=== PATIENT | male | born 1940 | race Caucasian/White ===

== ENCOUNTER 2019-01-14 19:19 | Emergency (ER) | payer OTHER ==
[2019-01-14 20:16] LABS: Urine Blood TRACE (NEG); Urine Glucose NEGATIVE (NEG); Urine Protein 1+ (NEG); Urine Specific Gravity 1.015 (1.005-1.030); Urine pH 6.5 (5.0-7.0)
[2019-01-14 20:16] LABS: Urine Bacteria 20-50 /HPF (NONE SEEN); Urine Culture Reflex Order REFLEXED; Urine Mucus 2+ /HPF (NONE SEEN)
--- NOTE | 2019-01-14 20:30 | EDPHYS ---
Physician Documentation [facility] Name: Samuel Parker Age: 78 yrs Sex: Male : 1940 Arrival Date: 01/14/2019 Time: 19:20 Bed 14 Private MD: Jose Vázquez C ED Physician Elvis Stewart HPI: 01/14 20:27 This 78 yrs old Male presents to ER via Ambulatory with complaints of Ear gs Pain, Sinus Pain, Urinary Problem. 20:27 The patient presents with pain, that is acute. The complaints affect the left ear. gs Onset: The symptoms/episode began/occurred acutely, yesterday. Modifying factors: The symptoms are alleviated by nothing, the symptoms are aggravated by nothing. Associated signs and symptoms: Pertinent positives: sinus trouble, Pertinent negatives: fever. Severity of symptoms: At their worst the symptoms were moderate in the emergency department the symptoms are unchanged. The patient has experienced similar episodes in the past, a few times. + dysuria. Historical: - Allergies: 19:31 Symbicort; ak1 - Home Meds: 19:31 aspirin 81 mg Oral TbEC 1 tab once daily [Active]; lisinopril Oral [Active]; probiotics ak1 [Active]; viteyes caps [Active]; atorvastatin Oral [Active]; Glimepiride Oral [Active]; - PMHx: 19:31 CAD; Diabetes - NIDDM; High Cholesterol; ak1 - PSHx: 19:31 Appendectomy; Tonsillectomy; Hernia repair; CABG; ak1 - Immunization history:: Adult Immunizations unknown. - Social history:: Smoking status: Smoking status: Patient uses tobacco products, denies chronic smoking, but will smoke occasionally. - Ebola Screening: : No symptoms or risks identified at this time. ROS: 20:27 All other systems are negative. gs Exam: 20:27 Head/Face: Normocephalic, atraumatic. Eyes: Pupils equal round and reactive to light, gs extra-ocular motions intact. Lids and lashes normal. Conjunctiva and sclera are non-icteric and not injected. Cornea within normal limits. Periorbital areas with no swelling, redness, or edema. Neck: Trachea midline, no thyromegaly or masses palpated, and no cervical lymphadenopathy. Supple, full range of motion without nuchal rigidity, or vertebral point tenderness. No Meningismus. Chest/axilla: Normal chest wall appearance and motion. Nontender with no deformity. No lesions are appreciated. Cardiovascular: Regular rate and rhythm with a normal S1 and S2. No gallops, murmurs, or rubs. Normal PMI, no JVD. No pulse deficits. Respiratory: Lungs have equal breath sounds bilaterally, clear to auscultation and percussion. No rales, rhonchi or wheezes noted. No increased work of breathing, no retractions or nasal flaring. Abdomen/GI: Soft, non-tender, with normal bowel sounds. No distension or tympany. No guarding or rebound. No evidence of tenderness throughout. Back: No spinal tenderness. No costovertebral tenderness. Full range of motion. Skin: Warm, dry with normal turgor. Normal color with no rashes, no lesions, and no evidence of cellulitis. MS/ Extremity: Pulses equal, no cyanosis. Neurovascular intact. Full, normal range of motion. Neuro: Awake and alert, GCS 15, oriented to person, place, time, and situation. Cranial nerves II-XII grossly intact. Motor strength 5/5 in all extremities. Sensory grossly intact. Cerebellar exam normal. Normal gait. 20:27 Constitutional: The patient appears alert, awake. 20:27 ENT: TM's: decreased mobility, dullness, erythema, loss of bony landmarks, on the left. Vital Signs: 19:31 BP 142 / 76; Pulse 79; Resp 16; Temp 97.6; Pulse Ox 97% on R/A; Weight 74.84 kg (R); ak1 Height 5 ft. 11 in. (180.34 cm) (R); Pain 3/10; 20:46 BP 106 / 75; Pulse 82; Resp 16; Pulse Ox 100% on R/A; jb4 19:31 Body Mass Index 23.01 (74.84 kg, 180.34 cm) ak1 MDM: 20:19 Patient medically screened. 20:27 Data reviewed: vital signs, nurses notes. Counseling: I had a detailed discussion with the patient and/or guardian regarding: the historical points, exam findings, and any diagnostic results supporting the discharge/admit diagnosis, the need for outpatient follow up. 01/14 19:43 Order name: Urine Microscopic Only 01/14 19:53 Order name: Urine Dipstick--Ancillary (enter results) mw2 01/14 19:43 Order name: Urine Dipstick-Ancillary (obtain specimen); Complete Time: 19:52 01/14 20:17 Order name: Urine Culture EDMS Administered Medications: No medications were administered Disposition: 01/14/19 20:29 Discharged to Home. Impression: Otitis media, unspecified, left ear, Cystitis. - Condition is Stable. - Discharge Instructions: Urinary Tract Infection, Adult, Otitis Media, Adult, [id number]. - Prescriptions for Ceftin 500 mg Oral Tablet - take 1 tablet by ORAL route every 12 hours for 10 days; 20 tablet. - Medication Reconciliation Form, Thank You Letter, Antibiotic Education, Prescription Opioid Use form. - Follow up: Private Physician; When: 2 - 3 days; Reason: Re-evaluation by your physician. Signatures: Dispatcher [employer] EDMS Staci Balderas RN RN ak1 Santi Mathis RN RN jb4 Elvis Stewart MD MD Corrections: (The following items were deleted from the chart) 20:49 20:29 01/14/2019 20:29 Discharged to Home. Impression: Otitis media, unspecified, left jb4 ear; Cystitis. Condition is Stable. Forms are Medication Reconciliation Form, Thank You Letter, Antibiotic Education, Prescription Opioid Use. Follow up: Private Physician; When: 2 - 3 days; Reason: Re-evaluation by your physician. gs
--- NOTE | 2019-01-14 20:30 | ER ---
Nurse's Notes [facility] Name: Samuel Parker Age: 78 yrs Sex: Male : 1940 Arrival Date: 01/14/2019 Time: 19:20 Bed 14 Private MD: Jose Vázquez C Diagnosis: Otitis media, unspecified, left ear;Cystitis Presentation: 01/14 19:29 Presenting complaint: Patient states: left ear pain X2 day. urine frequency and burning ak1 X3 days. Transition of care: patient was not received from another setting of care. Onset of symptoms is unknown. Risk Assessment: Do you want to hurt yourself or someone else? Patient reports no desire to harm self or others. Initial Sepsis Screen: Does the patient meet any 2 criteria? No. Patient's initial sepsis screen is negative. Does the patient have a suspected source of infection? No. Patient's initial sepsis screen is negative. Care prior to arrival: None. 19:29 Method Of Arrival: Ambulatory ak1 19:29 Acuity: ZHAO 4 ak1 Triage Assessment: 19:31 General: Appears in no apparent distress. Behavior is cooperative, anxious. Pain: ak1 Complains of pain in left ear. Historical: - Allergies: 19:31 Symbicort; ak1 - Home Meds: 19:31 aspirin 81 mg Oral TbEC 1 tab once daily [Active]; lisinopril Oral [Active]; probiotics ak1 [Active]; viteyes caps [Active]; atorvastatin Oral [Active]; Glimepiride Oral [Active]; - PMHx: 19:31 CAD; Diabetes - NIDDM; High Cholesterol; ak1 - PSHx: 19:31 Appendectomy; Tonsillectomy; Hernia repair; CABG; ak1 - Immunization history:: Adult Immunizations unknown. - Social history:: Smoking status: Smoking status: Patient uses tobacco products, denies chronic smoking, but will smoke occasionally. - Ebola Screening: : No symptoms or risks identified at this time. Screenin:31 Abuse screen: Denies threats or abuse. Denies injuries from another. Nutritional ak1 screening: No deficits noted. Tuberculosis screening: No symptoms or risk factors identified. Fall Risk None identified. Assessment: 19:45 General: Appears in no apparent distress. comfortable, Behavior is calm, cooperative, jb4 appropriate for age. Pain: Complains of pain in left ear Pain does not radiate. Pain currently is 4 out of 10 on a pain scale. Quality of pain is described as uncomfortable. Neuro: Level of Consciousness is awake, alert, obeys commands, Oriented to person, place, time, situation. Cardiovascular: Patient's skin is warm and dry. Respiratory: Reports cough that is non-productive, Airway is patent Respiratory effort is even, unlabored, Respiratory pattern is regular, symmetrical. GI: No signs and/or symptoms were reported involving the gastrointestinal system. : Reports burning with urination, urgency, urinary frequency. EENT: Throat is clear is pink. Derm: Skin is intact, Skin is pink, warm \T\ dry. Musculoskeletal: Circulation, motion, and sensation intact. 20:46 Reassessment: Patient appears in no apparent distress at this time. Patient and/or jb4 family updated on plan of care and expected duration. Pain level reassessed. Patient is alert, oriented x 3, equal unlabored respirations, skin warm/dry/pink. Pt left ED ambulatory with steady gait. No IV access during ED visit. Vital Signs: 19:31 BP 142 / 76; Pulse 79; Resp 16; Temp 97.6; Pulse Ox 97% on R/A; Weight 74.84 kg (R); ak1 Height 5 ft. 11 in. (180.34 cm) (R); Pain 3/10; 20:46 BP 106 / 75; Pulse 82; Resp 16; Pulse Ox 100% on R/A; jb4 19:31 Body Mass Index 23.01 (74.84 kg, 180.34 cm) [facility] ED Course: 19:20 Patient arrived in ED. ds1 19:20 Jose Vázquez MD is Private Physician. ds1 19:29 Triage completed. ak1 19:31 Arm band placed on Patient placed in an exam room, on a stretcher, Patient notified of ak1 wait time. 19:31 Patient has correct armband on for positive identification. Bed in low position. Call ak1 light in reach. Side rails up X 1. 19:32 Santi Mathis, HARVEY is Primary Nurse. jb4 19:43 Elvis Stewart MD is Attending Physician. gs 20:46 No provider procedures requiring assistance completed. Patient did not have IV access jb4 during this emergency room visit. Administered Medications: No medications were administered Outcome: 20:29 Discharge ordered by . souleymane 20:46 Discharged to home ambulatory. jb4 20:46 Condition: stable 20:46 Discharge instructions given to patient, Instructed on discharge instructions, follow up and referral plans. medication usage, Demonstrated understanding of instructions, follow-up care, medications, Prescriptions given X 1. 20:49 Patient left the ED. jb4 Signatures: Rochelle Montiel ds1 Staci Balderas RN RN ak1 Santi Mathis RN RN jb4 Elvis Stewart MD MD gs
[2019-01-14 20:58] VITALS: TEMP 97.6
[2019-01-14 20:59] VITALS: BP 106/75; O2SAT 100
== END 2019-01-14 20:49 | disposition home or self-care (01) ==
LOC: ER 19:19
DX: H66.92 Otitis media, unspecified, left ear (principal); N30.90 Cystitis, unspecified without hematuria; I25.10 Atherosclerotic heart disease of native coronary artery without angina pectoris; E11.9 Type 2 diabetes mellitus without complications; E78.00 Pure hypercholesterolemia, unspecified; Z79.82 Long term (current) use of aspirin
CPT/HCPCS: 81003; 81015; 87086; 87088; 99282

== ENCOUNTER 2019-01-31 14:15 | Emergency (ER) | payer OTHER ==
[2019-01-31 15:09] LABS: Absolute Monocytes 0.9 K/uL (0.1-1.3); Absolute Neutrophil 7.6 K/uL (1.8-8.0); Basophils % 0.9 % (0-1.3); Eosinophils % 2.7 % (0-4.4); Hematocrit 38.4 % (39.6-49.0); Lymphocytes % 10.2 % (15.3-44.8); MPV 7.8 fL (7.6-11.3); Monocytes % 9.1 % (3.3-12.3); RBC Red Blood Cell Count 4.34 M/uL (4.33-5.43)
[2019-01-31 15:15] LABS: Potassium 3.9 mmol/L (3.5-5.1)
--- NOTE | 2019-01-31 15:31 | RAD REPORT ---
EXAM DESCRIPTION: RAD - Chest Pa And Lat (2 Views) - 01/31/2019 3:14 pm CLINICAL HISTORY: Cough;Chest pain Chest pain. COMPARISON: Chest Single View dated 04/25/2016; Chest Pa And Lat (2 Views) dated 02/23/2016; CHEST PA AND LAT 2 VIEW dated 07/17/2013; CHEST PA AND LAT 2 VIEW dated 06/26/2013 FINDINGS: The lungs are emphysematous but clear. Small left pleural effusion is present. The heart i s normal in size. No displaced fractures. Sternotomy wires present. IMPRESSION: COPD.
--- NOTE | 2019-01-31 16:00 | EDPHYS ---
Physician Documentation [facility] Name: Samuel Parker Age: 78 yrs Sex: Male : 1940 Arrival Date: 01/31/2019 Time: 14:18 Bed 6 Private MD: Jose Vázquez C ED Physician Ruben Sepulveda HPI: 01/31 14:59 This 78 yrs old Male presents to ER via Ambulatory with complaints of Cough, rn Chest Pain. 14:59 The patient or guardian reports cough. Onset: The symptoms/episode began/occurred 3 rn day(s) ago. Severity of symptoms: At their worst the symptoms were moderate, in the emergency department the symptoms are unchanged. Modifying factors: The symptoms are alleviated by nothing, the symptoms are aggravated by nothing. The patient has experienced similar episodes in the past. Reports seen here and by ENT recently, diagnosed with sinus infection on 2 rounds of augmentin, reports felt better, then 2 days ago started with bad cough, reports chest pain with cough, but no sob, no fever, no hemoptysis, still taking abx. . Historical: - Allergies: 14:21 Symbicort; sv - PMHx: 14:21 CAD; Diabetes - NIDDM; High Cholesterol; sv - PSHx: 14:21 Appendectomy; Tonsillectomy; Hernia repair; CABG; sv - Immunization history:: Adult Immunizations up to date. - Social history:: Smoking status: Patient/guardian denies using tobacco. - Family history:: not pertinent. - Ebola Screening: : Patient negative for fever greater than or equal to 101.5 degrees Fahrenheit, and additional compatible Ebola Virus Disease symptoms Patient denies exposure to infectious person Patient denies travel to an Ebola-affected area in the 21 days before illness onset No symptoms or risks identified at this time. - Hospitalizations: : No recent hospitalization is reported. ROS: 14:59 Constitutional: Negative for fever, chills, and weight loss, Eyes: Negative for injury, rn pain, redness, and discharge, Neck: Negative for injury, pain, and swelling, Cardiovascular: Negative for palpitations, and edema, Respiratory: Negative for shortness of breath, wheezing Abdomen/GI: Negative for abdominal pain, nausea, vomiting, diarrhea, and constipation, MS/Extremity: Negative for injury and deformity, Skin: Negative for injury, rash, and discoloration, Neuro: Negative for headache, weakness, numbness, tingling, and seizure. Exam: 14:59 Constitutional: This is a well developed, well nourished patient who is awake, alert, rn and in no acute distress. Head/Face: Normocephalic, atraumatic. Eyes: Pupils equal round and reactive to light ENT: MMM, no stridor Cardiovascular: + moderate systolic murmur, regular rate and rhythm. Respiratory: Clear bilateral breath sounds, no wheezing, no retractions MS/ Extremity: Pulses equal, no cyanosis. Neurovascular intact. Full, normal range of motion. Equal circumference. Neuro: Awake and alert Vital Signs: 14:21 BP 152 / 73; Pulse 84; Resp 18; Temp 98; Pulse Ox 99% ; Weight 72.57 kg; Height 5 ft. sv 11 in. (180.34 cm); Pain 0/10; 15:40 BP 144 / 70; Pulse 76; Resp 17; Temp 98.2; Pulse Ox 100% on R/A; Pain 0/10; sg 14:21 Body Mass Index 22.32 (72.57 kg, 180.34 cm) sv MDM: 14:30 Patient medically screened. rn 15:56 Differential Diagnosis: Bronchitis Upper Respiratory Infection Viral Syndrome Pneumonia rn Other COPD. Data reviewed: vital signs, nurses notes, lab test result(s), EKG, radiologic studies, plain films, and as a result, I will discharge patient. Counseling: I had a detailed discussion with the patient and/or guardian regarding: the historical points, exam findings, and any diagnostic results supporting the discharge/admit diagnosis, lab results, radiology results, the need for outpatient follow up, to return to the emergency department if symptoms worsen or persist or if there are any questions or concerns that arise at home. Special discussion: I discussed with the patient/guardian in detail that at this point there is no indication for admission to the hospital. It is understood, however, that if the symptoms persist or worsen the patient needs to return immediately for re-evaluation. ED course: Pt without oxygen requirement, cxr shows signs of COPD and chronic pleural effusion that patient knows about, normal WBC, neg procal. Will dc home with expectorant and pcp f/u. . 01/31 14:38 Order name: CBC with Diff; Complete Time: 15:21 rn 01/31 14:38 Order name: Basic Metabolic Panel; Complete Time: 15:21 rn 01/31 14:30 Order name: XRAY Chest Pa And Lat (2 Views); Complete Time: 15:32 rn 01/31 14:30 Order name: EKG; Complete Time: 14:30 rn 01/31 14:30 Order name: EKG - Nurse/Tech; Complete Time: 15:08 rn 01/31 14:38 Order name: Procalcitonin; Complete Time: 15:48 rn 01/31 14:38 Order name: IV Start; Complete Time: 15:08 rn Administered Medications: No medications were administered Disposition: 01/31/19 16:00 Discharged to Home. Impression: Cough. - Condition is Stable. - Discharge Instructions: Cough, Adult. - Medication Reconciliation Form, Thank You Letter, Antibiotic Education, Prescription Opioid Use form. - Follow up: Jose Vázquez MD; When: As needed; Reason: Recheck today's complaints, Re-evaluation by your physician. - Problem is an ongoing problem. - Symptoms have improved. Signatures: Dispatcher [employer] EDHarika Narvaez RN RN sv Niraj Garcia RN RN sg Ruben Sepulveda MD MD rn or lvn: (The following items were deleted from the chart) 16:09 16:00 01/31/2019 16:00 Discharged to Home. Impression: Cough. Condition is Stable. sg Forms are Medication Reconciliation Form, Thank You Letter, Antibiotic Education, Prescription Opioid Use. Follow up: Jose Vázquez; When: As needed; Reason: Recheck today's complaints, Re-evaluation by your physician. Problem is an ongoing problem. Symptoms have improved. rn
--- NOTE | 2019-01-31 16:00 | ER ---
Nurse's Notes [facility] Name: Samuel Parker Age: 78 yrs Sex: Male : 1940 Arrival Date: 01/31/2019 Time: 14:18 Bed 6 Private MD: Jose Vázquez C Diagnosis: Cough Presentation: 01/31 14:20 Presenting complaint: Patient states: cough for a few weeks, was seen here and dx with sv sinus infection. Report chest discomfort midsternally. Transition of care: patient was not received from another setting of care. Onset of symptoms was January 31, 2019. Initial Sepsis Screen: Does the patient meet any 2 criteria? No. Patient's initial sepsis screen is negative. Does the patient have a suspected source of infection? No. Patient's initial sepsis screen is negative. Care prior to arrival: None. 14:20 Method Of Arrival: Ambulatory sv 14:20 Acuity: ZHAO 3 sv 14:42 Risk Assessment: Do you want to hurt yourself or someone else? Patient reports no sg desire to harm self or others. Historical: - Allergies: 14:21 Symbicort; sv - PMHx: 14:21 CAD; Diabetes - NIDDM; High Cholesterol; sv - PSHx: 14:21 Appendectomy; Tonsillectomy; Hernia repair; CABG; sv - Immunization history:: Adult Immunizations up to date. - Social history:: Smoking status: Patient/guardian denies using tobacco. - Family history:: not pertinent. - Ebola Screening: : Patient negative for fever greater than or equal to 101.5 degrees Fahrenheit, and additional compatible Ebola Virus Disease symptoms Patient denies exposure to infectious person Patient denies travel to an Ebola-affected area in the 21 days before illness onset No symptoms or risks identified at this time. - Hospitalizations: : No recent hospitalization is reported. Screenin:40 Abuse screen: Denies threats or abuse. Denies injuries from another. Nutritional sg screening: No deficits noted. Tuberculosis screening: No symptoms or risk factors identified. Never had TB. Fall Risk None identified. Assessment: 14:40 General: Appears in no apparent distress. slender, well groomed, well developed, well sg nourished, Behavior is calm, cooperative, quiet. Pain: Complains of pain in chest Quality of pain is described as aching, with cough. Neuro: Level of Consciousness is awake, alert, obeys commands, Oriented to person, place, time, situation, Training Coordinator are equal bilaterally Moves all extremities. Gait is steady, Speech is normal, Facial symmetry appears normal. Cardiovascular: Capillary refill is brisk in bilateral fingers Patient's skin is warm and dry. Chest pain is described as mild, quality is heaviness, is located in anterior chest wall. Respiratory: Airway is patent Respiratory effort is even, unlabored, Respiratory pattern is regular, symmetrical, Breath sounds are coarse. GI: Abdomen is round non-distended, Bowel sounds present X 4 quads. : No signs and/or symptoms were reported regarding the genitourinary system. EENT: No signs and/or symptoms were reported regarding the EENT system. Derm: Skin is pink, warm \T\ dry. Musculoskeletal: No signs and/or symptoms reported regarding the musculoskeletal system. Vital Signs: 14:21 BP 152 / 73; Pulse 84; Resp 18; Temp 98; Pulse Ox 99% ; Weight 72.57 kg; Height 5 ft. sv 11 in. (180.34 cm); Pain 0/10; 15:40 BP 144 / 70; Pulse 76; Resp 17; Temp 98.2; Pulse Ox 100% on R/A; Pain 0/10; sg 14:21 Body Mass Index 22.32 (72.57 kg, 180.34 cm) sv ED Course: 14:18 Patient arrived in ED. as 14:19 Jose Vázquez MD is Private Physician. as 14:21 Triage completed. sv 14:21 Arm band placed on. sv 14:25 Patient has correct armband on for positive identification. Bed in low position. Call sg light in reach. Side rails up X2. lunchroom monitor on. Pulse ox on. NIBP on. Warm blanket given. Head of bed elevated. 14:30 Ruben Sepulveda MD is Attending Physician. rn 14:40 Initial lab(s) drawn, by me, sent to lab. Inserted saline lock: 20 gauge in left upper sg arm, using aseptic technique. Blood collected. 14:45 No provider procedures requiring assistance completed. sg 14:56 Niraj Garcia, RN is Primary Nurse. sg 15:13 XRAY Chest Pa And Lat (2 Views) In Process Unspecified. EDMS 15:59 Jose Vázquez MD is Referral Physician. rn 16:01 IV discontinued, intact, bleeding controlled, No redness/swelling at site. Pressure sg dressing applied. Administered Medications: No medications were administered Outcome: 16:00 Discharge ordered by MD. rn 16:08 Discharged to home ambulatory, with family. sg 16:08 Condition: good 16:08 Discharge instructions given to patient, Instructed on discharge instructions, follow up and referral plans. safety practices, Demonstrated understanding of instructions, follow-up care. 16:09 Patient left the ED. sg Signatures: Dispatcher [employer] Harika Hargrove RN RN sv Gay, Steven, RN RN sg Martinez, Amelia as Nieto, Roman, MD MD rn
[2019-01-31 16:23] VITALS: BP 152/73; TEMP 98; O2SAT 99
--- NOTE | 2019-02-01 06:49 | EKG ---
Test Date: 2019-01-31 Test Time: 14:28:49 Cardiac Cath Rn: HANY MEASUREMENT RESULTS: Intervals: Rate: 78 DC: 204 QRSD: 92 QT: 386 QTc: 440 Severance: P: 64 DC: 204 QRS: 59 T: 96 INTERPRETIVE STATEMENTS: Normal sinus rhythm Nonspecific T wave abnormality Abnormal ECG Compared to ECG 05/05/2008 12:40:06 T-wave abnormality now present First degree AV block no longer present Electronically Signed On 02-01-19 06:48:22 CDT by Murtaza Tipton
== END 2019-01-31 16:09 | disposition home or self-care (01) ==
LOC: ER 14:15
DX: R05 Cough (principal); I25.10 Atherosclerotic heart disease of native coronary artery without angina pectoris; E11.9 Type 2 diabetes mellitus without complications; E78.00 Pure hypercholesterolemia, unspecified
CPT/HCPCS: 36415; 71046; 80048; 84145; 85025; 93005; 99284

== ENCOUNTER 2023-03-09 16:41 | Emergency (ER) | payer OTHER ==
[2023-03-09 17:31] LABS: Absolute Lymphocytes (CBC) 0.7 K/uL (0.7-4.9); Hematocrit 28.9 % (39.6-49.0); Lymphocytes % 12.3 % (15.3-44.8); MCV 90.7 fL (80-100); RBC Red Blood Cell Count 3.19 M/uL (4.33-5.43)
[2023-03-09 17:35] LABS: Protime INR 1.03
--- OUTSIDE RECORDS SUMMARY | 2023-03-09 17:37 | XMS REPORT | Continuity of Care Document ---
:1940 Author Organization [facility] t Address [address] [place] [address]. [address] [place] [address] Care Team Providers Name Role Phone Amos Darling Attending Clinician Unavailable Rajinder Ibarra Attending Clinician Unavailable Arnoldfarb_Malik Attending Clinician Unavailable Александр Harris Attending Clinician [phone] 1, Adc Infusion Chair Attending Clinician Unavailable 1, Adc Infusion Nurse Attending Clinician Unavailable Hollis Leone MD Attending Clinician Tejinder Whitaker Admitting Clinician Unavailable Physician, No Primary or Family Admitting Clinician Unavaila ble Goldfarb_R Admitting Clinician Unavailable Payers Payer Name Policy Type Policy Number Effective Date Expiration Date Arturo brown [employer]ET[employer] (MEDICARE [id number] 2022 REPLACEMENT PPO) 00:00:00 MEDICARE B-[place]: [id number] 2007 [employer] 00:00:00 [employer]ET[employer] (INDEMNITY) [id number] 2000 00:00:00 Problems Condition Condition Condition Status Onset Resolution Last Treating Co mments Source Name Details Category Date Date Treatment Clinician Date Gerard Gerard Problem Active [place] hematuria Hematuria 1-12 Metr o 00:00: Urology 00 Erectile Erectile Problem Active 2021-10 [place] dysfunctio Dysfunctio 1-14 Me tro n n 00:00: Urology 00 Spermatoce Spermatoce Problem Active [place] le 2-21 [facility] 00:00: Urology 00 Raised Raised Problem Active 2015-10 [place] prostate Prostate 0-27 [facility] specific Specific 00:00: Urolog y antigen Antigen 00 Lower Lower Problem Active [place] urinary Urinary 05-16 [facility] tract Tract 00:00: Urology symptoms Symptoms 00 due to Due to benign Benign prostatic Prostatic hypertroph Hypertroph y y Type 2 Type 2 Problem Active [place] diabetes Diabetes 05-16 [facility] mellitus Mellitus 00:00: Urolog y with with 00 peripheral Peripheral angiopathy Angiopathy Allergies, Adverse Reactions, Alerts Allergy Allergy Status Severity Reaction(s) Onset Inactive Treating Comm ents Source Name Type Date Date Clinician peter DA Active MO hives [facility] de 03-02 Clear 00:00: [place] 00 [facility] formoter DA Active [place] hives [facility] ol 03-02 Clear 00:00: [place] 00 [facility] MERFORMI DA Active SV anxious/conf HC A N used 03-02 Clear 00:00: [place] 00 [facility] Budesoni Propensi Active Hives Univer s de-Formo ty to 2-11 ity of terol adverse 00:00: [place] reaction 00 Medical s Branch BUDESONI DRUG Active Hiv Univers DE-FORMO 2-11 ity of TEROL 00:00: [place] 00 Medical [place] SYMBICOR Allergy Active [place] T to 10-01 [facility] substanc 00:00: Urology e 00 Metformi Allergy Active Mild to Confusion, [place] to moderate, Lightheadedn M etro substanc Mild to ess Urology e moderate NO KNOWN Drug Active Univers ALLERGIE Class ity of [facility] Social History Social Habit Start Date Stop Date Quantity Comments Source Sex Assigned At Uni versity [facility] Smoking Status Start Date Stop Date Source Former Smoker [place] [facility] Unknown if ever smoked Universit y [facility] Medications Ordered Filled Start Stop Current Ordering Indication Dosage Frequency Signature Comments Components Source Medication Medication Date Date Medication? Clinician (SIG) Name Name kike 2020- No 700mg Univ ers b (EUA) 700 11-11- ity of mg in NaCl 22:12: 00:05 [place] 0.9% (NS) 00 :00 Medical 270 mL Branch infusion bamlanivima 2020- No 700mg 700 mg, IV Univers b (EUA) 700 2-11 02-12 Infusion, it y of mg in NaCl 22:12: 00:05 ONCE, [place]i [place] 0.9% (NS) 00 :00 11/11/20 at [facility] pawan 270 mL 1615, For Branch infusion 1 dose
Ad chip tester as an IV infusion over 60 minutes through a PVC infusion set containing a 0.2 or 0.22 micron in-line polyethers ulfone filter.&nb sp; S low or stop infusion and treat as appropriat e if an infusion-r elated reaction occurs. Dilu mika infusion solution should be administer ed immediatel y. If immediate administra tion is not possible, store diluted bamlanivim ab infusion solution for up to 24 hours refrigerat ed at 2?C to 8?C (36?F to 46?F) or up to 7 hours at 20?C to 25?C (68?F to 77?F) including infusion time.
bamlanivima 2020- No 700mg Univ ers b (EUA) 700 11-11 ity of mg in NaCl 22:12: 00:05 [place] 0.9% (NS) 00 :00 Medical 270 mL Branch infusion bamlanivima 2020- No 700mg 700 mg, IV Univers b (EUA) 700 11-11 Infusion, it y of mg in NaCl 22:12: 00:05 ONCE, [place]i [place] 0.9% (NS) 00 :00 11/11/20 at [facility] pawan 270 mL 1615, For Branch infusion 1 dose
Ad chip tester as an IV infusion over 60 minutes through a PVC infusion set containing a 0.2 or 0.22 micron in-line polyethers ulfone filter.&nb sp; S low or stop infusion and treat as appropriat e if an infusion-r elated reaction occurs. Dilu mika infusion solution should be administer ed immediatel y. If immediate administra tion is not possible, store diluted bamlanivim ab infusion solution for up to 24 hours refrigerat ed at 2?C to 8?C (36?F to 46?F) or up to 7 hours at 20?C to 25?C (68?F to 77?F) including infusion time.
Aspir-81 Aspir-81 No Aspir-81 Larry ston [facility] atorvastati atorvastati No atorvastat [place] n 80 mg n 80 mg in 80 mg [facility] tablet TAKE tablet TAKE tablet Urology 1 TABLET BY 1 TABLET BY TAKE 1 MOUTH DAILY MOUTH DAILY TABLET BY IN THE IN THE MOUTH EVENING EVENING DAILY IN WITH MEAL WITH MEAL THE EVENING WITH MEAL ciprofloxac ciprofloxac No ciprofloxa [place] in 500 mg in 500 mg reba 500 mg [facility] tablet TAKE tablet TAKE tablet Urology 1 TABLET BY 1 TABLET BY TAKE 1 MOUTH TWICE MOUTH TWICE TABLET BY DAILY DAILY MOUTH TWICE DAILY ezetimibe ezetimibe No ezetimibe [place] 10 mg 10 mg 10 mg [facility] tablet TAKE tablet TAKE tablet Urology 1 TABLET BY 1 TABLET BY TAKE 1 MOUTH DAILY MOUTH DAILY TABLET BY MOUTH DAILY finasteride finasteride No finasterid [place] 5 mg tablet 5 mg tablet e 5 mg Metro TAKE 1 TAKE 1 tablet Urology TABLET BY TABLET BY TAKE 1 MOUTH DAILY MOUTH DAILY TABLET BY MOUTH DAILY FreeStyle FreeStyle No FreeStyle [facility] 2 Kay 2 Kay 2 Metro Swink USE Swink USE Swink USE Urology DIRECTED DIRECTED DIRECTED FreeStyle FreeStyle No FreeStyle [facility] Kay 2 Kay 2 [facility] Sensor kit Sensor kit Sensor kit Urology USE USE USE DIRECTED DIRECTED DIRECTED EVERY 14 EVERY 14 EVERY 14 DAYS DAYS DAYS glimepiride glimepiride No glimepirid [place] 4 mg tablet 4 mg tablet e 4 mg [facility] TAKE 1 TAKE 1 tablet Urology TABLET BY TABLET BY TAKE 1 MOUTH TWICE MOUTH TWICE TABLET BY DAILY WITH DAILY WITH MOUTH BREAKFAST BREAKFAST TWICE AND SUPPER AND SUPPER DAILY WITH BREAKFAST AND SUPPER Jardiance Jardiance No Jardiance [place] 10 mg 10 mg 10 mg [facility] tablet tablet tablet Urology Jardiance Jardiance No Jardiance [place] 25 mg 25 mg 25 mg [facility] tablet TAKE tablet TAKE tablet Urology 1 TABLET BY 1 TABLET BY TAKE 1 MOUTH DAILY MOUTH DAILY TABLET BY IN THE IN THE MOUTH MORNING MORNING DAILY IN THE MORNING lisinopril lisinopril No lisinopril [place] 2.5 mg 2.5 mg 2.5 mg [facility] tablet TAKE tablet TAKE tablet Urology 1 TABLET BY 1 TABLET BY TAKE 1 MOUTH DAILY MOUTH DAILY TABLET BY MOUTH DAILY metoprolol metoprolol No metoprolol [place] succinate succinate succinate [facility] ER 25 mg ER 25 mg ER 25 mg Uro logy tablet,exte tablet,exte tablet,ext nded nded ended release 24 release 24 release 24 hr TAKE 1 hr TAKE 1 hr TAKE 1 TABLET BY TABLET BY TABLET BY MOUTH DAILY MOUTH DAILY MOUTH DAILY pioglitazon pioglitazon No pioglitazo [place] e 30 mg e 30 mg ne 30 mg [facility] tablet TAKE tablet TAKE tablet Urology 1 TABLET BY 1 TABLET BY TAKE 1 MOUTH DAILY MOUTH DAILY TABLET BY IN THE IN THE MOUTH MORNING MORNING DAILY IN WITH WITH THE BREAKFAST BREAKFAST MORNING WITH BREAKFAST tadalafil tadalafil No tadalafil [place] 20 mg 20 mg 20 mg [facility] tablet TAKE tablet TAKE tablet Urology ONE (1) ONE (1) TAKE ONE TABLET(S) TABLET(S) (1) BY MOUTH BY MOUTH TABLET(S) ONCE A DAY ONCE A DAY BY MOUTH ONCE A DAY DIRECTED. DIRECTED. DIRECTED. amoxicillin amoxicillin No amoxicilli [place] 500 mg 500 mg n 500 mg [facility] capsule capsule capsule Urolog y TAKE 1 TAKE 1 TAKE 1 CAPSULE BY CAPSULE BY CAPSULE BY MOUTH THREE MOUTH THREE MOUTH TIMES DAILY TIMES DAILY THREE TIMES DAILY Aspir-81 Aspir-81 No Aspir-81 Larry ston [facility] atorvastati atorvastati No atorvastat [place] n 80 mg n 80 mg in 80 mg [facility] tablet TAKE tablet TAKE tablet Urology 1 TABLET BY 1 TABLET BY TAKE 1 MOUTH DAILY MOUTH DAILY TABLET BY IN THE IN THE MOUTH EVENING EVENING DAILY IN WITH MEAL WITH MEAL THE EVENING WITH MEAL Bactrim DS Bactrim DS No 1 Q12H Bactrim DS [place] 800 mg-160 800 mg-160 800 mg-160 [facility] mg tablet mg tablet mg tablet Urology Take 1 Take 1 Take 1 tablet tablet tablet every 12 every 12 every 12 hours by hours by hours by oral route oral route oral route for 7 days. for 7 days. for 7 days. ciprofloxac ciprofloxac No ciprofloxa [place] in 500 mg in 500 mg reba 500 mg [facility] tablet TAKE tablet TAKE tablet Urology 1 TABLET BY 1 TABLET BY TAKE 1 MOUTH TWICE MOUTH TWICE TABLET BY DAILY DAILY MOUTH TWICE DAILY ezetimibe ezetimibe No ezetimibe [place] 10 mg 10 mg 10 mg [facility] tablet TAKE tablet TAKE tablet Urology 1 TABLET BY 1 TABLET BY TAKE 1 MOUTH DAILY MOUTH DAILY TABLET BY MOUTH DAILY finasteride finasteride No finasterid [place] 5 mg tablet 5 mg tablet e 5 mg [facility] TAKE 1 TAKE 1 tablet Urology TABLET BY TABLET BY TAKE 1 MOUTH DAILY MOUTH DAILY TABLET BY MOUTH DAILY FreeStyle FreeStyle No FreeStyle [place] Kay 2 Kay 2 Kay 2 [facility] Swink USE Swink USE Swink USE Urology DIRECTED DIRECTED DIRECTED FreeStyle FreeStyle No FreeStyle [place] Kay 2 Kay 2 Kay 2 [facility] Sensor kit Sensor kit Sensor kit Urology USE USE USE DIRECTED DIRECTED DIRECTED EVERY 14 EVERY 14 EVERY 14 DAYS DAYS DAYS glimepiride glimepiride No glimepirid [place] 4 mg tablet 4 mg tablet e 4 mg [facility] TAKE 1 TAKE 1 tablet Urology TABLET BY TABLET BY TAKE 1 MOUTH DAILY MOUTH DAILY TABLET BY IN THE IN THE MOUTH MORNING MORNING DAILY IN WITH WITH THE BREAKFAST BREAKFAST MORNING AND 2 AND 2 WITH TABLET IN TABLET IN BREAKFAST THE EVENING THE EVENING AND 2 WITH DINNER WITH DINNER TABLET IN THE EVENING WITH DINNER Jardiance Jardiance No Jardiance [place] 10 mg 10 mg 10 mg [facility] tablet tablet tablet Urology Jardiance Jardiance No Jardiance [place] 25 mg 25 mg 25 mg [facility] tablet TAKE tablet TAKE tablet Urology 1 TABLET BY 1 TABLET BY TAKE 1 MOUTH DAILY MOUTH DAILY TABLET BY IN THE IN THE MOUTH MORNING MORNING DAILY IN THE MORNING lisinopril lisinopril No lisinopril [place] 2.5 mg 2.5 mg 2.5 mg [facility] tablet TAKE tablet TAKE tablet Urology 1 TABLET BY 1 TABLET BY TAKE 1 MOUTH DAILY MOUTH DAILY TABLET BY MOUTH DAILY metoprolol metoprolol No metoprolol [place] succinate succinate succinate [facility] ER 25 mg ER 25 mg ER 25 mg Uro logy tablet,exte tablet,exte tablet,ext nded nded ended release 24 release 24 release 24 hr TAKE 1 hr TAKE 1 hr TAKE 1 TABLET BY TABLET BY TABLET BY MOUTH DAILY MOUTH DAILY MOUTH DAILY pioglitazon pioglitazon No pioglitazo [place] e 30 mg e 30 mg ne 30 mg [facility] tablet TAKE tablet TAKE tablet Urology 1 TABLET BY 1 TABLET BY TAKE 1 MOUTH DAILY MOUTH DAILY TABLET BY IN THE IN THE MOUTH MORNING MORNING DAILY IN WITH WITH THE BREAKFAST BREAKFAST MORNING WITH BREAKFAST tadalafil tadalafil No tadalafil [place] 20 mg 20 mg 20 mg [facility] tablet TAKE tablet TAKE tablet Urology ONE (1) ONE (1) TAKE ONE TABLET(S) TABLET(S) (1) BY MOUTH BY MOUTH TABLET(S) ONCE A DAY ONCE A DAY BY MOUTH ONCE A DAY DIRECTED. DIRECTED. DIRECTED. Tradjenta 5 Tradjenta 5 No Tradjenta [place] mg tablet mg tablet 5 mg [facility] TAKE 1 TAKE 1 tablet Urology TABLET BY TABLET BY TAKE 1 MOUTH DAILY MOUTH DAILY TABLET BY MOUTH DAILY Aspir-81 Aspir-81 No Aspir-81 Larry [place]on [facility] atorvastati atorvastati No atorvastat [place] n 80 mg n 80 mg in 80 mg [facility] tablet TAKE tablet TAKE tablet Urology 1 TABLET BY 1 TABLET BY TAKE 1 MOUTH DAILY MOUTH DAILY TABLET BY IN THE IN THE MOUTH EVENING EVENING DAILY IN WITH MEAL WITH MEAL THE EVENING WITH MEAL finasteride finasteride No finasterid [place] 5 mg tablet 5 mg tablet e 5 mg [facility] TAKE 1 TAKE 1 tablet Urology TABLET BY TABLET BY TAKE 1 MOUTH DAILY MOUTH DAILY TABLET BY MOUTH DAILY glimepiride glimepiride No glimepirid [place] 1 mg tablet 1 mg tablet e 1 mg [facility] TAKE 3 TAKE 3 tablet Urology TABLET BY TABLET BY TAKE 3 MOUTH TWICE MOUTH TWICE TABLET BY DAILY DAILY MOUTH TWICE DAILY lisinopril lisinopril No lisinopril [place] 2.5 mg 2.5 mg 2.5 mg [facility] tablet TAKE tablet TAKE tablet Urology 1 TABLET BY 1 TABLET BY TAKE 1 MOUTH DAILY MOUTH DAILY TABLET BY MOUTH DAILY OneTouch OneTouch No OneTouch Larry ston Ultra Blue Ultra Blue Ultra Blue [facility] Test Strip Test Strip Test Strip Urology USE USE USE DIRECTED DIRECTED DIRECTED BID BID BID OneTouch OneTouch No OneTouch [place] st[place] Ultra Test Ultra Test Ultra Test Metro strips TEST strips TEST strips Urology BLOOD SUGAR BLOOD SUGAR TEST BLOOD TWICE DAILY TWICE DAILY SUGAR TWICE DAILY Restasis Restasis No Restasis Larry sto[place]anna 0.05 % eye 0.05 % eye 0.05 % eye [facility] drops in a drops in a drops in a Urology dropperette dropperette dropperett e tadalafil tadalafil No tadalafil [place] 20 mg 20 mg 20 mg [facility] tablet TAKE tablet TAKE tablet Urology ONE (1) ONE (1) TAKE ONE TABLET(S) TABLET(S) (1) BY MOUTH BY MOUTH TABLET(S) ONCE A DAY ONCE A DAY BY MOUTH ONCE A DAY DIRECTED. DIRECTED. DIRECTED. Aspir-81 No Aspir- Larry ston [facility] atorvastati atorvastati No atorvastat [place] n 80 mg n 80 mg in 80 mg [facility] tablet TAKE tablet TAKE tablet Urology 1 TABLET BY 1 TABLET BY TAKE 1 MOUTH DAILY MOUTH DAILY TABLET BY IN THE IN THE MOUTH EVENING EVENING DAILY IN WITH MEAL WITH MEAL THE EVENING WITH MEAL benzonatate benzonatate No benzonatat [place] 100 mg 100 mg e 100 mg [facility] capsule capsule capsule Urolog y TAKE 1 TAKE 1 TAKE 1 CAPSULE BY CAPSULE BY CAPSULE BY MOUTH FOUR MOUTH FOUR MOUTH FOUR TIMES DAILY TIMES DAILY TIMES NEEDED NEEDED DAILY FOR COUGH FOR COUGH NEEDED FOR COUGH benzonatate benzonatate No benzonatat [place] 200 mg 200 mg e 200 mg [facility] capsule capsule capsule Urolog y TAKE 1 TAKE 1 TAKE 1 CAPSULE BY CAPSULE BY CAPSULE BY MOUTH EVERY MOUTH EVERY MOUTH 8 HOURS 8 HOURS EVERY 8 NEEDED NEEDED HOURS NEEDED ezetimibe ezetimibe No ezetimibe [place] 10 mg 10 mg 10 mg [facility] tablet TAKE tablet TAKE tablet Urology 1 TABLET BY 1 TABLET BY TAKE 1 MOUTH DAILY MOUTH DAILY TABLET BY MOUTH DAILY finasteride finasteride No finasterid [place] 5 mg tablet 5 mg tablet e 5 mg [facility] TAKE 1 TAKE 1 tablet Urology TABLET BY TABLET BY TAKE 1 MOUTH DAILY MOUTH DAILY TABLET BY MOUTH DAILY FreeStyle FreeStyle No FreeStyle [facility] 2 Kay 2 Kay 2 [facility] Swink USE Swink USE Swink USE Urology DIRECTED DIRECTED DIRECTED FreeStyle FreeStyle No FreeStyle [facility] 2 Kay 2 Kay 2 [facility] Sensor kit Sensor kit Sensor kit Urology USE USE USE DIRECTED DIRECTED DIRECTED EVERY 14 EVERY 14 EVERY 14 DAYS DAYS DAYS glimepiride glimepiride No glimepirid [place] 1 mg tablet 1 mg tablet e 1 mg [facility] TAKE 3 TAKE 3 tablet Urology TABLETS BY TABLETS BY TAKE 3 MOUTH TWICE MOUTH TWICE TABLETS BY DAILY DAILY MOUTH TWICE DAILY glimepiride glimepiride No glimepirid [place] 4 mg tablet 4 mg tablet e 4 mg [facility] TAKE 1 TAKE 1 tablet Urology TABLET BY TABLET BY TAKE 1 MOUTH TWICE MOUTH TWICE TABLET BY DAILY WITH DAILY WITH MOUTH BREAKFAST BREAKFAST TWICE AND SUPPER AND SUPPER DAILY WITH BREAKFAST AND SUPPER Janumet XR Reyesumet XR No Janumet XR [place] 100 100 100 [facility] mg-1,000 mg mg-1,000 mg mg-1,000 Urology tablet,exte tablet,exte mg nded nded tablet,ext release release ended TAKE 1 TAKE 1 release TABLET BY TABLET BY TAKE 1 MOUTH DAILY MOUTH DAILY TABLET BY IN THE IN THE MOUTH EVENING EVENING DAILY IN WITH MEAL WITH MEAL THE EVENING WITH MEAL Reyesuvia 100 Januvia 100 No Reyesuvia [place] mg tablet mg tablet 100 mg Met ro TAKE 1 TAKE 1 tablet Urology TABLET BY TABLET BY TAKE 1 MOUTH EVERY MOUTH EVERY TABLET BY MORNING MORNING MOUTH WITH WITH EVERY BREAKFAST BREAKFAST MORNING WITH BREAKFAST lisinopril lisinopril No lisinopril [place] 2.5 mg 2.5 mg 2.5 mg [facility] tablet TAKE tablet TAKE tablet Urology 1 TABLET BY 1 TABLET BY TAKE 1 MOUTH DAILY MOUTH DAILY TABLET BY MOUTH DAILY metoprolol metoprolol No metoprolol [place] succinate succinate succinate [facility] ER 25 mg ER 25 mg ER 25 mg Uro logy tablet,exte tablet,exte tablet,ext nded nded ended release 24 release 24 release 24 hr TAKE 1 hr TAKE 1 hr TAKE 1 TABLET BY TABLET BY TABLET BY MOUTH DAILY MOUTH DAILY MOUTH DAILY OneTouch OneTouch No OneTouch Larry ston Ultra Blue Ultra Blue Ultra Blue [facility] Test Strip Test Strip Test Strip Urology USE USE USE DIRECTED DIRECTED DIRECTED BID BID BID OneTouch OneTouch No OneTouch [place] ston Ultra Test Ultra Test Ultra Test [facility] strips TEST strips TEST strips Urology BLOOD SUGAR BLOOD SUGAR TEST BLOOD TWICE DAILY TWICE DAILY SUGAR TWICE DAILY pioglitazon pioglitazon No pioglitazo [place] e 30 mg e 30 mg ne 30 mg [facility] tablet TAKE tablet TAKE tablet Urology 1 TABLET BY 1 TABLET BY TAKE 1 MOUTH DAILY MOUTH DAILY TABLET BY IN THE IN THE MOUTH MORNING MORNING DAILY IN WITH WITH THE BREAKFAST BREAKFAST MORNING WITH BREAKFAST Restasis Restasis No Restasis Larry ston 0.05 % eye 0.05 % eye 0.05 % eye [facility] drops in a drops in a drops in a Urology dropperette dropperette dropperett e sulfamethox sulfamethox No sulfametho [place] azole 800 azole 800 xazole 800 [facility] mg-trimetho mg-trimetho mg-trimeth Urology prim 160 mg prim 160 mg oprim 160 tablet TAKE tablet TAKE mg tablet 1 TABLET BY 1 TABLET BY TAKE 1 MOUTH TWICE MOUTH TWICE TABLET BY DAILY DAILY MOUTH TWICE DAILY tadalafil tadalafil No tadalafil [place] 20 mg 20 mg 20 mg [facility] tablet TAKE tablet TAKE tablet Urology ONE (1) ONE (1) TAKE ONE TABLET(S) TABLET(S) (1) BY MOUTH BY MOUTH TABLET(S) ONCE A DAY ONCE A DAY BY MOUTH ONCE A DAY DIRECTED. DIRECTED. DIRECTED. Immunizations Ordered Immunization Filled Immunization Date Status Commen ts Source Name Name influenza, influenza, 2020-08-01 [facility], [facility]:00 Urology quadrivalent quadrivalent influenza, influenza, 2020-08-01 Completed [facility] injectable, injectable, 00:00:00 Urology quadrivalent quadrivalent influenza, influenza, 2020-08-01 Completed [facility] injectable, injectable, 00:00:00 Urology quadrivalent quadrivalent influenza, influenza, 2020-08-01 Completed [facility] injectable, injectable, 00:00:00 Urology quadrivalent quadrivalent pneumococcal pneumococcal 2019-01-27 Completed [facility] tro polysaccharide PPV23 polysaccharide PPV23 00:00:00 Urology pneumococcal pneumococcal 2019-01-27 Completed [facility] tro polysaccharide PPV23 polysaccharide PPV23 00:00:00 Urology pneumococcal pneumococcal 2019-01-27 Completed [facility] tro polysaccharide PPV23 polysaccharide PPV23 00:00:00 Urology pneumococcal pneumococcal 2019-01-27 Completed [facility] tro polysaccharide PPV23 polysaccharide PPV23 00:00:00 Urology influenza, influenza, 2018-07-09 Completed [facility], injectable, 00:00:00 Urology quadrivalent quadrivalent influenza, influenza, 2018-07-09 Completed [facility] injectable, injectable, 00:00:00 Urology quadrivalent quadrivalent influenza, influenza, 2018-07-09 Completed [facility] injectable, injectable, 00:00:00 Urology quadrivalent quadrivalent influenza, influenza, 2018-07-09 Completed [facility] injectable, injectable, 00:00:00 Urology quadrivalent quadrivalent influenza, influenza, 2017-08-01 Completed [facility] injectable, injectable, 00:00:00 Urology quadrivalent quadrivalent influenza, influenza, 2017-08-01 Completed [facility] injectable, injectable, 00:00:00 Urology quadrivalent quadrivalent influenza, influenza, 2017-08-01 Completed [facility] injectable, injectable, 00:00:00 Urology quadrivalent quadrivalent influenza, influenza, 2017-08-01 Completed [facility] injectable, injectable, 00:00:00 Urology quadrivalent quadrivalent Vital Signs Vital Name Observation Time Observation Value Comments Source Height 2022-10-12 00:00:00 71 [in_i] [facility] Urology BMI (Body Mass 2022-10-12 00:00:00 23 kg/m2 [place] [facility] Index) Urology Body Weight 2022-10-12 00:00:00 165 [lb_av] [facility] Urology Height 2021-08-08 00:00:00 71 [in_i] [facility] Urology BMI (Body Mass 2021-08-08 00:00:00 23 kg/m2 [place] [facility] Index) Urology Body Weight 2021-08-08 00:00:00 165 [lb_av] [facility] Urology Systolic blood 2020-11-12 01:03:00 152 mm[Hg] [facility] blood 2020-11-12 01:03:00 71 mm[facility]Hg[facility] 2020-11-12 01:03:00 63 /min [facility] Body temperature 2020-11-12 01:03:00 36.06 [facility] Respiratory rate 2020-11-12 01:03:00 18 /min [facility] Oxygen saturation in 2020-11-12 01:03:00 99 /min [facility] Arterial blood by [facility] Pulse oximetry Branch Body height 2020-11-11 22:05:00 180.3 cm [facility] Body weight 2020-11-11 22:05:00 71.215 kg [facility] BMI 2020-11-11 22:05:00 21.90 kg/m2 [facility] Procedures Procedure Date / Time Performed Performing Clinician Enrique vidales [id number] 2023-03-06 00:00:00 RASSA [facility] [id number] 2023-03-06 00:00:00 RASSA [facility] [id number] 2023-03-06 00:00:00 RASSA [facility] [id number] 2023-03-06 00:00:00 RASSA [facility] [id number] 2023-03-06 00:00:00 CHAAB.01 [facility] Clear [facility] [id number] 2023-03-06 00:00:00 CHAAB.01 [facility] [id number] 2023-03-06 00:00:[address] [facility] [address], abdomen + pelvis, 2022-10-10 00:00:00 [place] [facility] w/o contrast Urology - Needle Biopsy 2016-06-01 00:00:00 [place] [facility] tro Prostate Urology CARDIO- Heart Surgery 2010-12-02 00:00:00 [place] [facility] (Stents) Urology CARDIO- Carotid Artery 2010-10-01 00:00:00 [place] [facility] Surgery Urology - Needle Biopsy 2009-10-01 00:00:00 [facility] tro Prostate Urology GI- Inguinal Hernia 2009-10-01 00:00:00 [place] [facility] - Vasectomy 1978-10-01 00:00:00 [place] [facility] [facility] Urology GI- Appendectomy 1949-10-01 00:00:00 [place] Met [facility] Urology HEENT- Tonsil Surgery 1945-10-01 00:00:00 [place] [facility] - [facility]guinal (Groin[facility] Hernia Urology Plan of Care Planned Activity Planned Date Details Comments Source Diagnostic Test 2022-10-12 urinalysis, dipstick [place] [place] Pending 00:00:00 [code = urinalysis, Urology dipstick] Diagnostic Test 2022-10-12 culture, urine + [place] Pending 00:00:00 sensitivity [code = Urology culture, urine + sensitivity] Diagnostic Test 2022-10-12 cytology [code = [facility] [place] Pending 00:00:00 cytology] Urology Future Appointment 2023-08-14 Александр HarrisDanya Pooja 10:10:00 [id number] [facility] [address]; , [place] [address] Encounters Start End Encounter Admission Attending Care Care Encounter Source Date/Time Date/Time Type Type Clinicians Facility Department ID 2023-03-06 2023-03-07 Inpatient MIRA Becerra INTE [id number] [facility] 05:44:00 12:28:00 Torie 30 [facility] 2023-03-02 2023-03-02 Outpatient CARRIE Darling [facility] 3DAY [id number] [facility] 08:00:00 09:00:00 Torie 41 [facility] 2023-01-29 2023-01-29 Outpatient MIRA Yousif [facility] [id number] [facility] 11:41:00 11:41:00 Rajinder 71 [facility] 2022-11-03 2022-11-03 Outpatient Goldfarb_R [facility] U [id number] [place] 00:00:00 00:00:00 [address] [facility] 2022-10-27 2022-10-27 Александр [facility] [place] - [id number] [facility] 00:00:00 Pal Harris MD: 4219 [facility] [place] [facility] [address], - [facility] [address] , Ph. 2022-10-12 2022-10-12 Outpatient Goldfarb_R [facility]U [id number] [id number] [place] 00:00:00 00:00:00 [address] [facility] 2022-10-12 2022-10-12 Outpatient Goldfarb_R [facility] HMU 2439 [id number] [place] 00:00:00 00:00:00 [id number] [facility] 2022-10-12 2022-10-12 Outpatient Goldfarb_R [facility] HMU [id number] [id number] [place] 00:00:00 00:00:00 72932 [facility] 2022-10-12 2022-10-12 Outpatient Goldfarb_R [facility] HMU 2439 [id number] [place] 00:00:00 00:00:00 14473 [facility] 2022-10-12 2022-10-12 Александр [facility] [place] - [id number] [facility] 00:00:00 00:00:00 Pal Harris MD: 6560 [facility] [place] [facility] [place] [address], [place] [address] , Ph. 2022-10-10 2022-10-10 Outpatient Goldfarb_R [facility]U HMU [id number] [id number] [place] 00:00:00 00:00:00 [address] [facility] 2022-10-06 2022-10-06 Outpatient Goldfarb_R HMU HMU 2439 [id number] [place] 00:00:00 00:00:00 [id number] [facility] 2022-09-16 2022-09-16 Outpatient Goldfarb_R HMU HMU 2439 [id number] [place] 00:00:00 00:00:00 12328 [facility] 2022 2022 Outpatient Goldfarb_R HMU HMU 2439 [id number] [place] 00:00:00 00:00:00 85072 [facility] 2022-08-14 2022-08-14 Outpatient Goldfarb_R HMU HMU 2439 [id number] [place] 00:00:00 00:00:00 [id number] [facility] 2022-08-14 2022-08-14 Александр [facility] [place] - [id number] [facility] 00:00:00 00:00:00 Pal Harris MD: 6560 [facility] [place] [address], [place] [address] , Ph. 2022-08-11 2022-08-11 Outpatient Goldfarb_R HMU HMU 2439 [id number] [place] 00:00:00 00:00:00 [id number] [facility] 2021-08-08 2021-08-08 Outpatient Goldfarb_R HMU HMU 2439 [id number] [place] 11:57:00 11:57:00 76445 [facility] 2021-08-08 2021-08-08 Александр [facility] [place] - [id number] [facility] 00:00:00 00:00:00 Pal Harris Augustine fine MD: 6560 [facility] [place] [facility] [place] [address], [place] [address] , Ph. 2021-08-08 2021-08-08 Outpatient Steven, HMU HMU [id number] 00:00:00 00:00:00 Александр [id number] 2021-08-02 2021-08-02 Outpatient Goldfarb_R [facility]U U 2439 83-[address] [place] 10:51:00 10:51:00 [address] [facility] 2021-07-06 2021-07-06 Outpatient Goldfarb_R [facility] U 2439 83-[address] [place] 02:20:00 02:20:00 [address]408 [facility] 2020-11-11 2020-11-11 Nurse 1, Adc Infusion Chair [facility] 1.2. [id number] [facility] 16:03:24 17:03:24 Visit 1, Adc Infusion Nurse Jorge 350.1.1 3.10 ity Hollis Leone [id number] [place] [id number] [place] [id number] [place] 2020-11-11 2020-11-11 Outpatient R [facility] [id number] 798 [facility] 16:00:00 16:00:00 ity of [facility] Results Test Description Test Time Test Comments Results Result Comments Source GLUCOSE BEDSIDE 2023-03-07 12:21:00 Test Item Value Reference Range Interpretation Comme nts GLUCOSE BEDSIDE (test code = 196 MG/DL 70-110 H Performed by certified calender roll press operator at [facility] BASIC METABOLIC [id number] 05:19:00 Test Item Value Reference Range Interpretation Comments SODIUM (test code = 137 mEq/L 134-147 N NA) POTASSIUM (test code 3.8 mEq/L 3.4-5.0 N = K) CHLORIDE (test code 105 mEq/L 100-108 N = CL) CARBON DIOXIDE (test 23 mEq/l 21-33 N code = CO2) ANION GAP (test code 13 0-20 N = GAP) GLUCOSE (test code = 137 mg/dL 70-110 H GLU) BLOOD UREA NITROGEN 14 mg/dL 7-18 N (test code = BUN) GLOMERULAR 76.1 70-80 N The Glomerular FILTRATION RATE Filtration R ate is a (test code = GFR) calculated parameterbased on serum Creatinine, pat ient age and sex. GFR va luesless than 60 mL/min/ 1.73 square meters a re indicative ofCh ronic Kidney Disease. Values less than 15 mL/min/1.73squa re meters indicate Kidney failure. The calculation forGFR is based on the CKD-EPI (2020) calculat ion. This formulais race indifferent and is the recommended for mary for GFRby the Nat nal Kidney Foundati on for Adults.The GFR will not calculate if th e sex is unknown or if thepatient's ag e is <18 years. CREATININE (test 1.0 mg/dL 0.6-1.3 N code = CREAT) CALCIUM (test code = 8.4 mg/dL 8.0-10.5 N CA) [id number] 05:19:00 Test Item Value Reference Range Interpretation Comments PHOSPHOROUS (test code = PHOS) 2.8 MG/DL 2.5-4.9 N [id number] 05:19:00 Test Item Value Reference Range Interpretation Comments MAGNESIUM (test code = MAG) 1.67 mg/dL 1.80-2.40 L CALCIUM [id number] 05:07:00 Test Item Value Reference Range Interpretation Comments CALCIUM IONIZED (test code = DELONTE) 1.11 MMOL/L 1.09-1.30 N CBC W/AUTO [id number] 04:59:00 Test Item Value Reference Range Interpretation Comments WHITE BLOOD CELL (test code = 7.2 x10 3/uL 4.5-11.0 N WBC) RED BLOOD CELL (test code = 3.21 x10 6/uL 4.00-5.60 L RBC) HEMOGLOBIN (test code = HGB) 10.0 g/dL 12.5-16.9 L HEMATOCRIT (test code = HCT) 28.6 % 37.5-50.7 L MEAN CELL VOLUME (test code = 89.1 fL 81.0-99.0 N MCV) MEAN CELL HGB (test code = MCH) 31.2 pg 27.0-33.0 N MEAN CELL HGB CONCETRATION 35.0 g/dL 33.0-37.0 N (test code = MCHC) RED CELL DISTRIBUTION WIDTH CV 14.2 % 11.5-14.5 N (test code = RDW) RED CELL DISTRIBUTION WIDTH SD 45.8 fL 37.0-54.0 N (test code = RDW-SD) PLATELET COUNT (test code = 129 x10 3/uL 150-400 L PLT) MEAN PLATELET VOLUME (test code 9.6 fL 7.0-9.0 H = MPV) NEUTROPHIL % (test code = NT%) 76.9 % 56.0-77.0 N IMMATURE GRANULOCYTE % (test 0.3 % 0.0-2.0 N code = IG%) LYMPHOCYTE % (test code = LY%) 8.3 % 14.0-32.0 L MONOCYTE % (test code = MO%) 11.7 % 4.8-9.0 H EOSINOPHIL % (test code = EO%) 2.2 % 0.3-3.7 N BASOPHIL % (test code = BA%) 0.6 % 0.0-2.0 N NUCLEATED RBC % (test code = 0.0 % 0-0 N NRBC%) NEUTROPHIL # (test code = NT#) 5.54 x10 3/uL 2.0-7.6 N IMMATURE GRANULOCYTE # (test 0.02 x10 3/uL 0.00-0.03 N code = IG#) LYMPHOCYTE # (test code = LY#) 0.60 x10 3/uL 1.0-3.8 L MONOCYTE # (test code = MO#) 0.84 x10 3/uL 0.1-0.8 H EOSINOPHIL # (test code = EO#) 0.16 x10 3/uL 0.0-0.2 N BASOPHIL # (test code = BA#) 0.04 x10 3/uL 0.0-0.2 N NUCLEATED RBC # (test code = 0.00 x10 3/uL 0.0-0.1 N NRBC#) MANUAL DIFF REQUIRED (test code NO = MDIFF) GLUCOSE [id number] 20:42:00 Test Item Value Reference Range Interpretation Comments GLUCOSE BEDSIDE (test 130 MG/DL 70-110 H Perfor med by certified code = GLUBED) calender roll press operator at [facility] GLUCOSE [id number] 17:52:00 Test Item Value Reference Range Interpretation Comments GLUCOSE BEDSIDE (test 142 MG/DL 70-110 H Perfor med by certified code = GLUBED) calender roll press operator at [facility] GLUCOSE [id number] 12:21:00 Test Item Value Reference Range Interpretation Comments GLUCOSE BEDSIDE (test 196 MG/DL 70-110 H Perfor med by certified code = GLUBED) calender roll press operator at [facility] POC ARTERIAL BLOOD [id number] 11:45:00 Test Item Value Reference Range Interpretation Comments POC ARTERIAL BLOOD GAS PH (test 7.390 7.35-7.45 N code = POCPHA) POC ARTERIAL BLOOD GAS PCO2 (test 39.1 mmHg 35.0-45 N code = [id number]) POC TCO2 ARTERIAL (test code = 24.9 POCTCO2) POC ARTERIAL BLOOD GAS PO2 (test 112.1 mmHg 80-100.0 H code = UWGVK0Z) POC HCO3 ARTERIAL (test code = 23.7 MMOL/L 22.0-26.0 N [id number]) POC BASE EXCESS (test code = -1.3 MMOL/L -4.0-4.0 N POCBEA) POC O2 SATURATION (test code = 98.4 % 90-100 N POCO2S) ABG DELIVERY (test code = AN) Cannula ABG SITE (test code = SITEA) Art Line GERMÁN'S TEST (test code = ALLENS) N/A BASIC METABOLIC [id number] 11:45:00 Test Item Value Reference Range Interpretation Comments SODIUM (test code = NA/ABG) 138 mmol/L 134-147 N POTASSIUM (test code = K/ABG) 4.1 mmol/L 3.4-5.0 N CHLORIDE (test code = CL/ABG) 104 mmol/L 100-108 N CREATININE ABG (test code = 0.9 mg/dL 0.8-1.3 N CREAABG) POC IONIZED CALCIUM (test code = 1.18 MMOL/L 1.12-1.32 N POCCA) POC GLUCOSE (test code = POCGLU) 202 MG/DL 70-110 H HEMOGLOBIN [id number] 11:45:00 Test Item Value Reference Range Interpretation Comments HEMOGLOBIN ABG (test code = HGB/ABG) 8.9 G/DL 12.5-16.9 L [id number] 11:45:00 Test Item Value Reference Range Interpretation Comments HEMATOCRIT (test code = HCT/ABG) 26 % 37.5-50.7 L POC LACTIC [id number] 11:45:00 Test Item Value Reference Range Interpretation Comments POC LACTIC ACID (test code = 1.0 mmol/l 0.9-1.7 N POCLAC) GLUCOSE [id number] 10:16:00 Test Item Value Reference Range Interpretation Comments GLUCOSE BEDSIDE (test 229 MG/DL 70-110 H Perfor med by certified code = GLUBED) calender roll press operator at [place] [id number] 09:22:00 Test Item Value Reference Range Interpretation Comments ACT-ISTAT (test code 137 SEC 74-137 N Perform ed by certified = ACTI) calender roll press operator at [place] [id number] 08:55:00 Test Item Value Reference Range Interpretation Comments ACT-ISTAT (test code 275 SEC 74-137 H Perform ed by certified = ACTI) calender roll press operator at [facility] [id number] 08:23:00 Test Item Value Reference Range Interpretation Comments ACT-ISTAT (test code 305 SEC 74-137 H Perform ed by certified = ACTI) calender roll press operator at [facility] GLUCOSE [id number] 06:26:00 Test Item Value Reference Range Interpretation Comments GLUCOSE BEDSIDE (test 174 MG/DL 70-110 H Perfor med by certified code = GLUBED) calender roll press operator at [facility] COVID 19 Asymptomatic IH [id number] 14:52:00 Test Item Value Reference Range Interpretation Comments COVID 19 Asymptomatic Negative Negative A nega tive result is IH AG (test code = presumpti ve and should COVNONPUIAG) be confirmedwit h an FDA authorized mole cular assay, if neces tamiko forpatient jimy gement.A positive result does not rule out co-inf ections withother patho gens.This test detects tammy th viable (live) and non-viable,SARS -CoV, and SARS-CoV-2. Debra t performance dep ends on theamount of vi javier (antigen) in th e sample.This debra t has not been FDA cleare d or approved; the t est hasbeen authori zed by FDA under an Em ergency Use Authorizati on(EUA) for use by labo ratories certified under the CLIA thatmeet the requirements to perform moderate, high or waivedcomplexit y tests. - XR CHEST 2 [id number] 14:05:00 [facility] : 1940 Sex: M FAX: Tejinder Soriano MD [phone] [place]: St: PRE Name: ELOINA GASTELUM [facility] : 1940 Age/S: 82/M [address] [place] [address] Unit #: [id number] Loc: [place] [address] Phys: Tejinder Whitaker MD Acct: [id number] Dis Date: Status: PRE IN PHONE #: [phone] Exam Date: 03/02/2023 1247 FAX #: [phone] Reason: PAT EXAMS: CPT CODE: [id number] XR CHEST 2 V 48208 STUDY: Chest radiograph HISTORY: PATCOMPARISON: None. TECHNIQUE: Frontal and lateral views of the chest. LOCATION: H19 FINDINGS: The patient is status post median sternotomy. The cardiac silhouette is unremarkable. There is peripheral left lung scarring/atelectasis. There is no pleural effusion or pneumothorax. No acute osseous abnormalities are identified. IMPRESSION: No radiographic evidence for acute pulmonary abnormality. at 1405 Reported and signed by: Michael Bowers M.D. CC: Tejinder Whitaker MD Technologist: Aime Wu Trnscrd Date/Time/By: 03/02/2023 (0796) : By: [email or web address] Orig Print D/T: S: 03/02/2023 (9031) PAGE 1 Signed ReportBASIC METABOLIC [id number] 13:11:00 Test Item Value Reference Range Interpretation Comments SODIUM (test code = 138 mEq/L 134-147 N NA) POTASSIUM (test code 4.4 mEq/L 3.4-5.0 N = K) CHLORIDE (test code 104 mEq/L 100-108 N = CL) CARBON DIOXIDE (test 25 mEq/l 21-33 N code = CO2) ANION GAP (test code 13 0-20 N = GAP) GLUCOSE (test code = 191 mg/dL 70-110 H GLU) BLOOD UREA NITROGEN 14 mg/dL 7-18 N (test code = BUN) GLOMERULAR 61.1 70-80 L The Glomerular FILTRATION RATE Filtration R ate is a (test code = GFR) calculated parameterbased on serum Creatinine, pat ient age and sex. GFR va luesless than 60 mL/min/ 1.73 square meters a re indicative ofCh ronic Kidney Disease. Values less than 15 mL/min/1.73squa re meters indicate Kidney failure. The calculation forGFR is based on the CKD-EPI (2020) calculat ion. This formulais race indifferent and is the recommended for mary for GFRby the [facility] Kidney Foundati on for Adults.The GFR will not calculate if th e sex is unknown or if thepatient's ag e is <18 years. CREATININE (test 1.2 mg/dL 0.6-1.3 N code = CREAT) CALCIUM (test code = 9.1 mg/dL 8.0-10.5 N CA) B-TYPE NATRIURETIC [id number] 13:10:00 Test Item Value Reference Range Interpretation Comments B-TYPE NATRIURETIC PEPTIDE (test 156.0 PG/ML 0-100 H code = BNP) [id number] 13:03:00 Test Item Value Reference Range Interpretation Comments ALBUMIN (test code = ALB) 4.00 g/dL 3.4-5.0 N PROTHROMBIN [id number] 13:02:00 Test Item Value Reference Range Interpretation Comments PROTHROMBIN TIME 11.9 SECONDS 9.3-12.9 N PATIENT (test code = PTP) INTERNATIONAL NORMAL 1.1 0.8-1.2 N TARGET INR BY RATIO (test code = INDICATIO N Indication INR) INR1. Prophylax is of venous thrombos is 2.0 - 3.0 (orthoped ic surgery), Proph ylaxis of venous throm bosis (other than hig h-risk surgery), Treat ment of Deep Vein Thrombosis/Pulm onary Embolism, Preve ntion of systemic emb olism - Tissue heart va lves, Acute Myocardia l Infarction (to prevent systemic emboli sm), Valvular heart disease, Atrial Fibrillation, Bileaflet mecha nical valve in aortic position.2. Mec hanical prosthetic valv es (high risk), 2. 5 - 3.5 Presence of Lup us Anticoagulant o r Antiphospholipi d Antibodies, Pre vention of systemic emb olism - Acute Myocardia l Infarction (to prevent recurrent infar ct). CBC W/AUTO [id number] 12:49:00 Test Item Value Reference Range Interpretation Comments WHITE BLOOD CELL (test code = 8.0 x10 3/uL 4.5-11.0 N WBC) RED BLOOD CELL (test code = 3.99 x10 6/uL 4.00-5.60 L RBC) HEMOGLOBIN (test code = HGB) 12.3 g/dL 12.5-16.9 L HEMATOCRIT (test code = HCT) 36.6 % 37.5-50.7 L MEAN CELL VOLUME (test code = 91.7 fL 81.0-99.0 N MCV) MEAN CELL HGB (test code = MCH) 30.8 pg 27.0-33.0 N MEAN CELL HGB CONCETRATION 33.6 g/dL 33.0-37.0 N (test code = MCHC) RED CELL DISTRIBUTION WIDTH CV 14.2 % 11.5-14.5 N (test code = RDW) RED CELL DISTRIBUTION WIDTH SD 47.8 fL 37.0-54.0 N (test code = RDW-SD) PLATELET COUNT (test code = 177 x10 3/uL 150-400 N PLT) MEAN PLATELET VOLUME (test code 9.6 fL 7.0-9.0 H = MPV) NEUTROPHIL % (test code = NT%) 72.5 % 56.0-77.0 N IMMATURE GRANULOCYTE % (test 0.6 % 0.0-2.0 N code = IG%) LYMPHOCYTE % (test code = LY%) 11.7 % 14.0-32.0 L MONOCYTE % (test code = MO%) 11.6 % 4.8-9.0 H EOSINOPHIL % (test code = EO%) 3.0 % 0.3-3.7 N BASOPHIL % (test code = BA%) 0.6 % 0.0-2.0 N NUCLEATED RBC % (test code = 0.0 % 0-0 N NRBC%) NEUTROPHIL # (test code = NT#) 5.76 x10 3/uL 2.0-7.6 N IMMATURE GRANULOCYTE # (test 0.05 x10 3/uL 0.00-0.03 H code = IG#) LYMPHOCYTE # (test code = LY#) 0.93 x10 3/uL 1.0-3.8 L MONOCYTE # (test code = MO#) 0.92 x10 3/uL 0.1-0.8 H EOSINOPHIL # (test code = EO#) 0.24 x10 3/uL 0.0-0.2 H BASOPHIL # (test code = BA#) 0.05 x10 3/uL 0.0-0.2 N NUCLEATED RBC # (test code = 0.00 x10 3/uL 0.0-0.1 N NRBC#) MANUAL DIFF REQUIRED (test code NO = MDIFF) - CT ANGIO [id number] 00:00:00 [facility] : 1940 Sex: M Name: [facility] 1940 Age/S: 82 / M [address] [place] [address] Blvd Unit #: [id number] Loc: [place] [address] Phys: Rajinder Ibarra DATA NETWORK ARCHITECT Acct: [id number] Dis Date: Status: DEP CLI PHONE #: [phone] Exam Date: 01/29/2023 1303 FAX #: [phone] Reason: EVAL OF WHEEZING EXAMS: CPT CODE: [id number] CT ANGIO CHEST [address]33 PROCEDURE INFORMATION: Exam: CTA Heart and Coronary Arteries;TAVR Planning Exam date and time: 01/29/2023 12:09 PM Age: 82 years old Clinical indication: Other: Aortic stenosis; Other: Aortic stenosis TECHNIQUE: Imaging protocol: CTA heart, coronary arteries and bypass grafts (when present) with contrast material including 3D image postprocessing (including evaluation of cardiac structure and morphology, assessment of cardiac function, and evaluation of venous structures, if performed). Exam performed for transcatheter aortic valve replacement (TAVR) planning.3D rendering (Not supervised by radiologist): MIP and/or 3D reconstructed images were created by thetechnologist. Acquisition mode: A prospective trigger or retrospective gating technique was used according to site specific protocol. Scanner: A minimum of 64 slice or greater coverage [address] scanner was used according to site location. Radiation optimization: All CT scans at this facility use at least one of these dose optimization techniques: automated exposure control; mA and/or kV adjustment per patient size (includes targeted exams where dose is matched to clinical indication); or iterative reconstruction. Contrast material: ISOVUE 370; Contrast volume: 100 ml; Contrast route: INTRAVENOUS (IV); Other technique: 3D renderinD reconstructed images were created, reviewed and saved. 3D renderinD reconstructed images were created, reviewed and saved. REPORTING DATA: Count of CT and Cardiac NMexams in prior 12 months: This patient has received 0 known CTs and 0 known cardiac nuclear medicinestudies in the 12 months prior to the current study. CT Radiation Dose: DLP = 705.4 mGy-cm COMPARISON: No relevant prior studies available. FINDINGS: Estimated root/annulus diameters are as follows: Aortic annulus diameter: 2.9 x 2.3 cm Sinus of Valsalva diameter: 3.4 x 3.6 x 3.5 cm Sinotubular junction diameter: 3.2 cm Right cusp height (to RCA takeoff): 1.5 cm Left cusp height (to Left main takeoff): 1.6 cm Estimated aortic diameters are as follows: Mid ascending aorta: 3.5 cm PAGE 1 Signed Report(CONTINUED) Name: ELOINA GASTELUM [facility] : 1940 Age/S: 82 / M [address] [place] [address] Blvd Unit #: [id number] Loc: [place] [address] Phys: Rajinder Ibarra NP Acct: [id number] Dis Date: Status: DEP CLI PHONE #: [phone] Exam Date: 01/29/2023 1303 FAX #: [phone] Reason: EVAL OF WHEEZING EXAMS: CPT CODE: [id number] CT ANGIO CHEST 58245 (Continued) Mid transverse arch: 3 cm Descending thoracic aorta at the level of the pulmonary arteries: 3 cm Aortic root calcium score is 3908. IMPRESSION: Aortic root measurements as above. PROCEDURE INFORMATION: Exam: CTA Chest Without And With Contrast CTA Abdomen and Pelvis Without And With Contrast Exam date and time: 01/29/2023 12:09 PM Age: 82 years old Clinical indication: Other: Aortic stenosis; Other: Aortic stenosis TECHNIQUE: Imaging protocol: Computed tomographic angiography of the chest without and with contrast. Computed tomographic angiography of the abdomen and pelvis without and with contrast. 3D rendering (Not supervised by radiologist): MIP and/or 3D reconstructed images were created by the technologist. Radiation optimization: All CT scans at this facility use at least one of these dose optimization techniques: automated exposure control; mA and/or kV adjustment per patient size (includes targeted exams where dose is matched to clinical indication); or iterative reconstruction. Contrast material: ISOVUE 370; Contrast volume: 100 ml; Contrast route: INTRAVENOUS (IV); REPORTING DATA: Count of CT and Cardiac NM exams in prior 12 months: This patient has received 0 known CTs and 0 known cardiac nuclear medicine studies in the 12 months prior to the current study. COMPARISON: No relevant prior studies available. FINDINGS: VASCULATURE: Aorta: Mild thoracic aortic calcifications is seen. Ectatic abd ominal aorta is seen measuring up to 2.8 cm. Small ulcerative plaque is seen involving the upper anterior abdominal aorta. Celiac trunk and mesenteric arteries: No occlusion or significant stenosis. Mild atherosclerotic changes. Renal arteries: No occlusion or significant stenosis. Mild atherosclerotic changes. Right iliac arteries: No occlusion or significant stenosis. Mild PAGE 2 Signed Report (CONTINUED) Name: ELOINA GASTELUM [facility] [place] : 1940 Age/S: 82 / M [address] [place] [address] Blvd Unit #: [id number] Loc: [facility] [place] [address] Phys: Rajinder Ibarra DATA NETWORK ARCHITECT Acct: [id number] Dis Date: Status: DEP CLI PHONE #: [phone] Exam Date: 01/29/2023 1303 FAX #: [phone] Reason: EVAL OF WHEEZINGEXAMS: CPT CODE: [id number] CT ANGIO CHEST [address]107 (Continued) atherosclerotic changes. Left iliac arteries: No occlusion or significant stenosis. Mild atherosclerotic changes. CHEST: Lungs: Minimal subpleural atelectasis or scarring is seen. No consolidation. Minimal emphysema in a tripping changes are seen. Pleural spaces: Trace left pleural effusion. Heart: No pericardial effusion. Coronary arteries: There is atherosclerotic calcification of the coronary arteries. Prior CABG changes are seen. ABDOMEN AND PELVIS: Liver: No mass. Gallbladder and bile ducts: 6 mm gallbladder stone or polyp is seen. Pancreas: Unremarkable. Spleen: Unremarkable. Adrenal glands: Unremarkable. Kidneys and ureters: No hydronephrosis. Stomach and bowel: Mild sigmoid colon diverticulosis. No obstruction. Appendix: No evidence of appendicitis. Intraperitoneal space: No free air. No significant fluid collection. Urinary bladder: Moderate bladder wall thickening is seen with adjacent stranding. Lymph nodes: No enlarged lymph nodes. Bones/joints: Prior sternotomy changes. Age related spine degenerative changes. Soft tissues: Left groin postoperative changes are seen. Small fat containing bilateral inguinal hernia. IMPRESSION: 1. Coronary artery disease with prior CABG changes are seen. 2. Mild thoracic aortic calcifications is seen. 3. Moderate bladder wall thickening with adjacent stranding, suggestive of cystitis. Underlying malignancy cannot be excluded. Cystoscopy would be helpful. 4. Severe aortic root calcification. 5. Ectatic abdominal aorta measuring up to 2.8 cm. 6. Small ulcerative plaque involving the upper anterior abdominal aorta. 7. 6 mm gallbladder stone or polyp is seen. Ultrasound follow-up would be helpful. 8. Trace left pleural effusion. PAGE 3 Signed Report (CONTINUED) Name: [facility]LOINA [facility]ASTELUM [facility] 1940 Age/S: 82 / M [address] [place] [address] Bl Unit #: [id number] Loc: [place] [address] Phys: Rajinder Ibarra NP Acct: [id number] Dis Date: Status: DEP CLI PHONE #: [phone] Exam Date: 01/29/2023 1303 FAX #: [phone] Reason: EVAL OF WHEEZING EXAMS: CPT CODE: [id number] CT ANGIO CHEST [address]8524 (Continued) at 1629 Reported and signed by: Tyron Gauthier D.O. CC: Rajinder Ibarra DATA NETWORK ARCHITECT; Tejinder Whitaker MD Technologist:RT Bhargavi(MR)(CT) CTDI: DLP: Trnscb Date/Time: 01/30/2023 (162) [email or web address] Orig Print D/T: S: 01/30/2023 (1630) PAGE 4 Signed Report- CTA HEART W CN ART/GRAFTS 2023-01-30 00:00:00 [facility] : 1940 Sex: M Name: ELOINA GASTELUM [facility] Krys Norris : 1940 Age/S: 82 / M [address] [place] [address] Blvd Unit #: [id number] Loc: [place] [address] Phys: Rajinder Ibarra DATA NETWORK ARCHITECT Acct: [id number] Dis Date: Status: DEP CLI PHONE #: [phone] Exam Date: 01/29/2023 1303 FAX #: [phone] Reason: EXAMS: CPT CODE: [id number] CTA HEART W CN ART/GRAFTS 68911 PROCEDURE INFORMATION: Exam: CTA Heart and Coronary Arteries; TAVR Planning Exam date and time: 01/29/2023 12:09 PM Age: 82 years old Clinical indication: Other: Aortic stenosis; Other: Aortic stenosis TECHNIQUE: Imaging protocol: CTA heart, coronary arteries and bypass grafts (when present) with contrast material including 3D image postprocessing (including evaluation o f cardiac structure and morphology, assessment of cardiac function, and evaluation of venous structures, if performed). Exam performed for transcatheter aortic valve replacement (TAVR) planning. 3D rendering (Not supervised by radiologist): MIP and/or 3D reconstructed images were created by the technol ogniles. Acquisition mode: A prospective trigger or retrospective gating technique was used according to site specific protocol. Scanner: A minimum of [address] slice or greater coverage [address] scanner was used according to site location. Radiation optimization: All CT scans at this facility use at least one of these dose optimization techniques: automated exposure control; mA and/or kV adjustment per patient size (includes targeted exams where dose is matched to clinical indication); or iterative reconstruction. Contrast material: ISOVUE 370; Contrast volume: 100 ml; Contrast route: INTRAVENOUS (IV); Other technique: 3D renderinD reconstructed images were created, reviewed and saved. 3D renderinD reconstructed images were created, reviewed and saved. REPORTING DATA: Count of CT and Cardiac NM exams in prior 12 months: This patient has received 0 known CTs and 0 known cardiac nuclear medicine studies in the 12 months prior to the current study. CT Radiation Dose: DLP = 705.4 mGy-cm COMPARISON: No relevant prior studies available. FINDINGS: Estimated root/annulus diameters are as follows: Aortic annulus diameter: 2.9 x 2.3 cm Sinus of Valsalva diameter: 3.4 x 3.6 x 3.5 cm Sinotubular junction diameter: 3.2 cm Right cusp height (to RCA takeoff): 1.5 cm Left cusp height (to Left main takeoff): 1.6cm Estimated aortic diameters are as follows: Mid ascending aorta: 3.5 cm PAGE 1 Signed Report (CONTINUED) Name: ELOINA GASTELUM [facility] Krys Norris : 1940 Age/S: 82 / M [address] [place] [address] Blvd Unit #: [id number] Loc: [place] [address] Phys: Rajinder Ibarra DATA NETWORK ARCHITECT Acct: [id number] Dis Date: Status: DEP CLI PHONE #: [phone] Exam Date: 01/29/2023 1303 FAX #: [phone] Reason: EXAMS: CPT CODE: [id number] CTA HEART W CN ART/GRAFTS 81496 (Continued) Mid transverse arch: 3 cm Descending thoracic aorta at the level of the pulmonary arteries: 3 cm Aortic root calcium score is 3908. IMPRESSION: Aortic root measurements as above. PROCEDURE INFORMATION: Exam: CTA Chest Without And With Contrast CTA Abdomen and Pelvis Without And With Contrast Exam date and time: 01/29/2023 12:09 PM Age: 82 years old Clinical indication: Other: Aortic stenosis; Other: Aortic stenosis TECHNIQUE: Imaging protocol: Computed tomographic angiography of the chest without and with contrast. Computed tomographic angiography of the abdomen and pelvis without and with contrast. 3D rendering (Not supervised by radiologist): MIP and/or 3D reconstructed images were created by the technologist. Radiation optimization: All CT scans at this facility use at least one of these dose optimization techniques: automated exposure control; mA and/or kV adjustment per patient size (includes targeted exams wheredose is matched to clinical indication); or iterative reconstruction. Contrast material: ISOVUE 370;Contrast volume: 100 ml; Contrast route: INTRAVENOUS (IV); REPORTING DATA: Count of CT and Cardiac NM exams in prior 12 months: This patient has received 0 known CTs and 0 known cardiac nuclear medicine studies in the 12 months prior to the current study. COMPARISON: No relevant prior studies available. FINDINGS: VASCULATURE: Aorta: Mild thoracic aortic calcifications is seen. Ectatic abdominal aortais seen measuring up to 2.8 cm. Small ulcerative plaque is seen involving the upper anterior abdominal aorta. Celiac trunk and mesenteric arteries: No occlusion or significant stenosis. Mild atherosclerotic changes. Renal arteries: No occlusion or significant stenosis. Mild atherosclerotic changes. Right iliac arteries: No occlusion or significant stenosis. Mild PAGE 2 Signed Report (CONTINUED) Name: ELOINA GASTELUM : 1940 Age/S: 82 / M [address] [place] [address] Unit #: [id number] Loc: [place] [address] Phys: Rajinder Ibarra DATA NETWORK ARCHITECT Acct: [id number] Dis Date: Status: DEP CLI PHONE #: [phone] Exam Date: 01/29/2023 1303 FAX #: [phone] Reason: EXAMS: CPT CODE: [id number] CTA HEART W CN ART/GRAFTS 58041 (Continued) atherosclerotic changes. Left iliac arteries: No occlusion or significant stenosis. Mild atherosclerotic changes. CHEST: Lungs: Minimal subpleural atelectasis or scarring is seen. No consolidation. Minimal emphysema in a tripping changes are seen. Pleural spaces: Trace left pleural effusion. Heart: No pericardial effusion. Coronary arteries: There is atherosclerotic calcification of the coronary arteries. Prior CABG changes are seen. ABDOMEN AND PELVIS: Liver: No mass. Gallbladder and bile ducts: 6 mm gallbladder stone or polyp is seen. Pancreas: Unremarkable. Spleen: Unremarkable. Adrenal glands: Unremarkable. Kidneys and ureters: No hydronephrosis. Stomach and bowel: Mild sigmoid colon diverticulosis. No obstruction. Appendix: No evidence of appendicitis. Intraperitoneal space: No free air. No significant fluid collection. Urinary bladder: Moderate bladder wall thickening is seen with adjacent stranding. Lymph nodes: No enlarged lymph nodes. Bones/joints: Prior sternotomy changes. Age related spine degenerative changes. Soft tissues: Left groin postoperative changes are seen. Small fat containing bilateral inguinal hernia. IMPRESSION: 1. Coronary artery disease with prior CABG changes are seen. 2. Mild thoracic aortic calcifications is seen. 3. Moderate bladder wall thickening with adjacent stranding, suggestive of cystitis. Underlying malignancy cannot be excluded. Cystoscopy would be helpful. 4. Severe aortic root calcification. 5. Ectatic abdominal aorta measuring up to 2.8 cm. 6. Small ulcerative plaque involving the upper anterior abdominal aorta. 7. 6 mm gallbladder stone or polyp is seen. Ultrasound follow-up would be helpful. 8. Traceleft pleural effusion. PAGE 3 Signed Report (CONTINUED) Name: ELOINA GASTELUM : 1940 Age/S: 82 / M [address] Unit #: [id number] Loc: [place] [address] Phys: Rajinder Ibarra NP Acct: [id number] Dis Date: Status: DEP CLI PHONE #: [phone] Exam Date: 01/29/20231302 FAX #: [phone] Reason: EXAMS: CPT CODE: [id number] CTA HEART W CN ART/GRAFTS 04650 (Continued) at 1629 Reported and signed by: Tyron Gauthier D.O. CC: Rajinder Ibarra DATA NETWORK ARCHITECT; Tejinder Whitaker MD Technologist:Jessica Hicks RT(MR)(CT) CTDI: DLP: Trnscb Date/Time: 01/30/2023 (1628) [email or web address] Orig Print D/T: S: 01/30/2023 (163) PAGE 4 Signed Report- CTA ABD PEL W [id number] 00:00:00[facility] AVELINA OVERTON RINGSTEDName: ELOINA GASTELUM : 1940 Sex: M Name: ELOINA GASTELUM : 1940 Age/S: 82 / M [address] [facility] [address] [facility] Unit #: [id number] Loc: [place] [address] Phys: Rajinder Ibarra NP Acct: [id number] Dis Date: Status: DEP CLI PHONE #: [phone] Exam Date: 01/29/2023 [facility] FAX #: [phone] Reason: EVAL OF WHEEZING EXAMS: CPT CODE: [id number] CTA ABD PEL W CONT 21450 PROCEDURE INFORMATION: Exam: CTA Heart and Coronary Arteries; TAVR Planning Exam date and time: 01/29/2023 12:09 PM Age: 82 years old Clinical indication: Other: Aortic stenosis; Other: Aortic stenosis TECHNIQUE: Imaging protocol: CTA heart, coronary arteries and bypass grafts (when present) with contrast material including 3D image postprocessing (including evaluation of cardiac structure and morphology, assessment of cardiac function, and evaluation of venous structures, if performed). Exam performed for transcatheter aortic valve replacement (TAVR) planning. 3D rendering (Not supervised by radiologist): MIP and/or 3D reconstructed images were created by yudi gasca technologist. Acquisition mode: A prospective trigger or retrospective gating technique was used according to site specific protocol. Scanner: A minimum of 64 slice or greater coverage [address] scanner was used according to site location. Radiation optimization: All CT scans at this facility use at leastone of these dose optimization techniques: automated exposure control; mA and/or kV adjustment per patient size (includes targeted exams where dose is matched to clinical indication); or iterative reconstruction. Contrast material: ISOVUE 370; Contrast volume: 100 ml; Contrast route: INTRAVENOUS (IV);Other technique: 3D renderinD reconstructed images were created, reviewed and saved. 3D renderinD reconstructed images were created, reviewed and saved. REPORTING DATA: Count of CT and CardiacNM exams in prior 12 months: This patient has received 0 known CTs and 0 known cardiac nuclear medicine studies in the 12 months prior to the current study. CT Radiation Dose: DLP = 705.4 mGy-cm COMPARI SON: No relevant prior studies available. FINDINGS: Estimated root/annulus diameters are as follows:Aortic annulus diameter: 2.9 x 2.3 cm Sinus of Valsalva diameter: 3.4 x 3.6 x 3.5 cm Sinotubular junction diameter: 3.2 cm Right cusp height (to RCA takeoff): 1.5 cm Left cusp height (to Left main takeoff): 1.6 cm Estimated aortic diameters are as follows: Mid ascending aorta: 3.5 cm PAGE 1 Signed Report (CONTINUED) Name: ELOINA GASTELUM [facility] : 1940 Age/S: 82 / M [address] [place] [address] Unit #: [id number] Loc: [place] [address] Phys: Rajinder Ibarra DATA NETWORK ARCHITECT Acct: [id number] Dis Date: Status: DEP CLI PHONE #: [phone] Exam Date: 01/29/2023 1303 FAX #: [phone] Reason: EVAL OF W CYRIL EXAMS: CPT CODE: [id number] CTA ABD PEL W CONT 76637 (Continued) Mid transverse arch: 3 cm Descending thoracic aorta at the level of the pulmonary arteries: 3 cm Aortic root calcium score is 3908. IMPRESSION: Aortic root measurements as above. PROCEDURE INFORMATION: Exam: CTA Chest Without And With Contrast CTA Abdomen and Pelvis Without And With Contrast Exam date and time: 01/29/2023 12:09 PM Age: 82 years old Clinical indication: Other: Aortic stenosis; Other: Aortic stenosis TECHNIQUE: Imaging protocol: Computed tomographic angiography of the chest without and with contrast. Computed tomographic angiography of the abdomen and pelvis without and with contrast. 3Drendering (Not supervised by radiologist): MIP and/or 3D reconstructed images were created by the technologist. Radiation optimization: All CT scans at this facility use at least one of these dose optimization techniques: automated exposure control; mA and/or kV adjustment per patient size (includes targeted exams where dose is matched to clinical indication); or iterative reconstruction. Contrast material: ISOVUE 370; Contrast volume: 100 ml; Contrast route: INTRAVENOUS (IV); REPORTING DATA: Count of CT and Cardiac NM exams in prior 12 months: This patient has received 0 known CTs and 0 known cardiac nuclear medicine studies in the 12 months prior to the current study. COMPARISON: No relevant prior studies available. FINDINGS: VASCULATURE: Aorta: Mild thoracic aortic calcifications is seen. Ectatic abdominal aorta is seen measuring up to 2.8 cm. Small ulcerative plaque is seen involving the upper anterior abdominal aorta. Celiac trunk and mesenteric arteries: No occlusion or significant stenosis. Mild atherosclerotic changes. Renal arteries: No occlusion or significant stenosis. Mild atherosclerotic changes. Right iliac arteries: No occlusion or significant stenosis. Mild PAGE 2 Signed Report (CONTINUED) Name: ELOINA GASTELUM [facility] : 1940 Age/S: 82 / M [address] [place] [address] Unit #: [id number] Loc: [place] [address] Phys: Rajinder Ibarra DATA NETWORK ARCHITECT Acct: [id number] Dis Date: Status: DEP CLI PHONE #: [phone] Exam Date: 01/29/2023 1303 FAX #: [phone] Reason: EVAL OF WHEEZING EXAMS: CPT CODE: [id number] CTA ABD PEL W CONT 91881 (Continued) atherosclerotic changes. Left iliac arteries: No occlusion or significant stenosis. Mild atherosclerotic changes. CHEST: Lungs: Minimal subpleural atelectasis or scarring is seen. No consolidation. Minimal emphysema in a trippingchanges are seen. Pleural spaces: Trace left pleural effusion. Heart: No pericardial effusion. Coronary arteries: There is atherosclerotic calcification of the coronary arteries. Prior CABG changes are seen. ABDOMEN AND PELVIS: Liver: No mass. Gallbladder and bile ducts: 6 mm gallbladder stone or polyp is seen. Pancreas: Unremarkable. Spleen: Unremarkable. Adrenal glands: Unremarkable. Kidneys and ureters: No hydronephrosis. Stomach and bowel: Mild sigmoid colon diverticulosis. No obstruction. Appendix: No evidence of appendicitis. Intraperitoneal space: No free air. No significant fluid collection. Urinary bladder: Moderate bladder wall thickening is seen with adjacent stranding. Lymph nodes: Noenlarged lymph nodes. Bones/joints: Prior sternotomy changes. Age related spine degenerative changes. Soft tissues: Left groin postoperative changes are seen. Small fat containing bilateral inguinal hernia. IMPRESSION: 1. Coronary artery disease with prior CABG changes are seen. 2. Mild thoracic aortic calcifications is seen. 3. Moderate bladder wall thickening with adjacent stranding, suggestive of cystitis. Underlying malignancy cannot be excluded. Cystoscopy would be helpful. 4. Severe aortic root calcification. 5. Ectatic abdominal aorta measuring up to 2.8 cm. 6. Small ulcerative plaque involving the upper anterior abdominal aorta. 7. 6 mm gallbladder stone or polyp is seen. Ultrasound follow-up would be helpful. 8. Trace left pleural effusion. PAGE 3 Signed Report (CONTINUED) Name: ELOINA GASTELUM [facility] Krys Norris : 1940 Age/S: 82 / M [address] [place] [address] Blvd Unit #: [id number] Loc: [place] [address] Phys: Rajinder Ibarra DATA NETWORK ARCHITECT Acct: [id number] Dis Date: Status: DEP CLI PHONE #: [phone] Exam Date: 01/29/2023 1303 FAX #: [phone] Reason: EVAL OF WHEEZING EXAMS: CPT CODE: [id number] CTA ABD PEL W CONT 59050 (Continued) at 1629 Reported and signed by: Tyron Gauthier D.O. CC: Rajinder Ibarra DATA NETWORK ARCHITECT; Tejinder Whitaker MD Technologist:Jessica Hicks RT(MR)(CT) CTDI: DLP: Trnscb Date/Time: 01/30/2023 (1629) [email or web address] Orig Print D/T: S: 01/30/2023 (1630) PAGE 4 Signed ReportUrinalysis macro (dipstick) panel - [id number] 10:43:00 Test Item Value Reference Range Interpretation Comments leukocytes (test code large neg = leukocytes) urobilinogen (test 0.2 E.U./dL sm amt (.5-1mg/dL) code = urobilinogen) protein (test code = 100 mg/dL See_Comment [Autom ated protein) message] The sy stem which generated this result transmitted reference range : <=150 mg/d. The reference range was not used to interpret this result as normal/abnormal . pH (test code = pH) 5.0 4.5-8 blood (test code = large See_Comment [Automat ed blood) message] The sy stem which generated this result transmitted reference range : <=3 RBC. The reference range was not used to interpret this result as normal/abnormal . specific gravity >=1.030 1.005-1.025 (test code = specific gravity) ketone (test code = negative none ketone) bilirubin (test code negative neg = bilirubin) glucose (test code = 250 mg/dL See_Comment [Autom ated glucose) message] The sy stem which generated this result transmitted reference range : <=130 mg/d. The reference range was not used to interpret this result as normal/abnormal . color (test code = yellow yellow color) clarity (test code = clear clear or cloudy clarity) nitrite (test code = negative neg nitrite) [facility] UrologyUrinalysis macro (dipstick) panel - [id number] 10:43:00 Test Item Value Reference Range Interpretation Comments leukocytes (test code large neg = leukocytes) urobilinogen (test 0.2 E.U./dL sm amt (.5-1mg/dL) code = urobilinogen) protein (test code = 100 mg/dL See_Comment [Autom ated protein) message] The sy stem which generated this result transmitted reference range : <=150 mg/d. The reference range was not used to interpret this result as normal/abnormal . pH (test code = pH) 5.0 4.5-8 blood (test code = large See_Comment [Automat ed blood) message] The sy stem which generated this result transmitted reference range : <=3 RBC. The reference range was not used to interpret this result as normal/abnormal . specific gravity >=1.030 1.005-1.025 (test code = specific gravity) ketone (test code = negative none ketone) bilirubin (test code negative neg = bilirubin) glucose (test code = 250 mg/dL See_Comment [Autom ated glucose) message] The sy stem which generated this result transmitted reference range : <=130 mg/d. The reference range was not used to interpret this result as normal/abnormal . color (test code = yellow yellow color) clarity (test code = clear clear or cloudy clarity) nitrite (test code = negative neg nitrite) [facility] Urologyculture, urine + [id number] 00:00:00Urine CultureHouston [facility] UrologyCytology report of Specimen Cyto [id number] 00:00:00Non-vice president global digital marketing [facility]ology[facility] Notes Date/Time Note Provider Source 2023-03-07 11:15:00-00:00 [facility] ([facility]) Discharge Summary REPORT#:[id number] REPORT STATUS: Signed DATE:03/07/23 TIME: 1115 PATIENT: ELOINA GASTELUM UNIT #: [id number] ROOM/BED: 3302-1 : 42 AGE: 82 SEX: M ATTEND: Clarice Darling MD ADM AUTHOR: Rajinder Ibarra DATA NETWORK ARCHITECT * ALL edits or amendments must be made on the Bill.Forward/computer document * PCP PCP Discharge to: home General Information Free Text A P: 1. Severe Symptomatic Aortic Stenosis S/p TAVR 34 mm Lynne Evolut FX successful impl ant. Patient monitored overnight. Groin sites CDI, sinus rhythm no bleeding noted. Labs and vital signs reviewed. Cardiology reviewed echocardiogram and OK for di hermelindo. F/u in clinic with Cardiology and we will follow with Structural Heart team. Date of admission: Observation Start Date: Date of admission: 03/06/23 Discharge date: 03/07/23 Discharge diagnosis: Severe symptomatic aortic stenosis Hospital course: This is a 82 year old male/female with a past me dical history of severe symptomatic aortic stenosis that presented for e lective transcatheter aortic valve replacement and underwent successf ul implant of a 34 mm Medtronic Evolut FX. The patient was monitored overnight and did well. The labs and vital signs reviewed bilateral groins CDI without bleeding o r hematoma. Med Rec PCP PCP: PCP: Tejinder Whitaker MD Med Rec Discharge meds: Continue taking these medications: ATORVASTATIN (LIPITOR) 80 MG TAB 80 MILLIGRAM ORAL DAILY. FINASTERIDE (PROSCAR) 5 MG TAB 5 MILLIGRAM ORAL DAILY. GLIMEPIRIDE (AMARYL) 4 MG TAB 4 MILLIGRAM ORAL TWICE DAILY. LISINOPRIL (ZESTRIL) 2.5 MG TAB 2.5 MILLIGRAM ORAL DAILY. TADALAFIL (ADCIRCA) 20 MG TAB 20 MILLIGRAM ORAL DAILY. METOPROLOL TARTRATE (LOPRESSOR) 25 MG TAB 25 MILLIGRAM ORAL DAILY. EZETIMIBE (ZETIA) 10 MG TAB 10 MILLIGRAM ORAL DAILY. LINAGLIPTIN (TRADJENTA) 5 MG TAB 5 MILLIGRAM ORAL DAILY. PIOGLITAZONE (ACTOS) 30 MG TAB 30 MILLIGRAM ORAL BEFORE BREAKFAST. [VITEYES] (Unknown Strength) Unknown Dose ORAL TWICE DAILY. ASPIRIN EC (ECOTRIN) 81 MG TAB.EC 81 MILLIGRAM ORAL DAILY. Start taking the following new medications: CLOPIDOGREL (PLAVIX) 75 MG TAB 75 MILLIGRAM ORAL DAILY. Qty = 30 Refills = 3 Objective VS/I O Last Documented: Result Date Time Pulse Ox 99 03/07 1027 B/P 120/58 03/07 1027 B/P Mean 83 / 1027 Pulse 66 / 1027 Resp 22 03/07 1027 O2 Delivery Room air 03/07 0816 Temp 36.8 03/07 0800 O2 Flow Rate 3 03/06 1136 24 hour I O ending at 0700: 03/07 0700 03/06 1900 Intake Total 800.00 Output Total 1250 500 Balance -1250 300.00 Intake, IV 300.00 Intake, Oral 500 Number 1 Incontinent Voids Number Voids 6 Output, Urine 1250 500 Patient 78.1 kg Weight Weight Bed scale Measurement Method PATIENT WEIGHT: Weight (lb): 172 Weight (oz): 2.9 Weight (kg): 78.100 General appearance: alert, awake, oriented, no a cute distress Head/Eyes: atraumatic, clear cornea, EOMI ENT: normal dentition, normal ear left, normal e ar right, normal nose Neck: full range of motion Cardiovascular: normal capillary refill, regular rate rhythm, normal heart sounds, BP/pulses equal bilat., no ectopy Respiratory: clear to auscultation, no distress, no tenderness, aerating well GI: soft, non-tender Extremities: moves all, no edema-all extremities , bilateral groin sites CDI, left groin suture removed mild ecchymosis but no hematoma. 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 X 3 Discharge Instructions PCP PCP: PCP: Tejinder Whitaker MD )( Discharge to: Home/Self Care Discharge Instructions Additional Discharge Routines: Attending Follow- Up, Floor Helper Follow-Up )( Diet: Resume Home Diet/Feeds Follow-up Appointments Attending Physician: Attending Physician: Amos Darling MD Attending physician follow up timeframe: In 2-3 weeks Consulting provider 1: Provider 1: Tejinder Whitaker MD Specialty: CardiologyInterventional Consult follow up timeframe: In 1-2 weeks Electronically Signed by Rajinder Ibarra NP on 03/07 at 1436 Electronically Signed by Michael Valles MD on at 2000 [facility] #:[id number] END OF REPORT 2023-03-07 10:44:00-00:00 [id number] [place] [address] PATIENT NAME: ELOINA GASTELUM ADMIT DATE: ACCOUNT NO: [id number] ROOM NO: G.3302 AGE: 82 REPORT TYPE: eECHOCARDIOGRAM REPORT SEX: M ADMITTING PHYSICIAN:Tejinder Whitaker MD ATTENDING PHYSICIAN:Amos Darling MD *[address] [address] Transthoracic Echocardiogram Patient: Eloina Gastelum Study Date: 03/07/2023 BP: 135 / 63 Location: [facility] URN: [id number] 3330 : 1940 Age: 82 Height: 70 in / 177.8 cm Gender: M Weight: 218 .5 lb / 99.3 kg BMI/BSA: 31.4 kg/m 2 / 2.17 m 2 *Ordering Physician: * Amira Naidu NP *Interpreting Physician: * Michael Valles MD *Crew Boat Operator: * Cha Plascencia Indications: POST TAVR. Study data: Transthoracic echocardiogram. Proced ure: Transthoracic echocardiography was performed. Image quality wa s adequate. Complete 2D, complete spectral Doppler, and color Doppler . Location: Bedside. Patient status: Inpatient. Patient room number: 3302. Study status: DAVID. Findings Left ventricle: The cavity size is normal. Wall thickness is mildly increased. Systolic function is normal. The gifty mated ejection fraction is 55-60%. Wall motion is normal; there are no r egional wall motion abnormalities. Doppler parameters are consistent with abnormal left ventricular relaxation (grade 1 diastolic dysfun ction). Right ventricle: The cavity size is normal. Syst olic function is PATIENT NAME: ELOINA GASTELUM [address] normal. Left atrium: The atrium is normal in size. Right atrium: The atrium is normal in size. Aorta: Aortic root: The aortic root is normal in size. Aortic valve: There is a bioprosthetic valve. Post TAVR: There is a CoreValve/Evolut R valve, 29 mm transcatheter valve that is well seated in the aortic valve po sition. The LVOT diameter is 2 cm. The peak aortic gradient is 10 .2 mmHg. The mean aortic gradient is 4.8 mmHg. The LVOT VTI is 28 cm. The AV VTI is 29.9 cm. The aortic valve area is 3.1 cm 2. The peak jet [place] is 1.5 m/sec. There is a Trace perivalvular leak. There is no eviden ce of stenosis. There is no regurgitation. Mitral valve: The valve is structurally normal. There is no evidence of stenosis. There is mild regurgitatio n. Tricuspid valve: The valve is structurally raymond l. There is trivial regurgitation. Pulmonic valve: The valve is structurally normal . There is no regurgitation. Pericardium: There is no pericardial effusion. Pulmonary arteries: The main pulmonary artery is normal-sized. Systemic veins: Inferior vena cava: The vessel is normal in size . Measurements Left ventricle Value 03/06/2023 Ref CRISTINA, LAX 4.5 cm 4.1 4.2 - 5.8 ESD, LAX 3.2 cm 2.9 2.5 - 4.0 ESD/bsa, 1.5 cm/m 2 1.4 1.3 LAX - 2.1 FS, LAX 29 % 29 25 - 43 ESD/bsa 2.8 cm/m 2 3.0 ---- major ax, A4C CRISTINA/bsa 2.8 cm/m 2 3.0 ---- minor ax, A4C CRISTINA major 7.1 cm 7.6 ---- ax, A2C CRISTINA/bsa 3.3 cm/m 2 3.8 ---- major ax, A2C PW, ED 1.2 cm 1.1 0.6 - 1.0 IVS/PW, ED 1.15 1.21 ---- PATIENT NAME: ELOINA GASTELUM [id number] EF 56 % 57 52 - 72 E', lat 8.1 cm/sec 7.2 >=10 flo, TDI .0 E/e', lat 13 15 ---- flo, TDI E', med 6.3 cm/sec 3.6 >=7. flo, TDI 0 E/e', med 17 30 ---- flo, TDI E', avg, 7.2 cm/sec 5.4 ---- TDI E/e', avg, 15 20 <=14 TDI LVOT Value 03/06/2023 Ref Diam, S 2.04 cm 1.98 ---- Area 3.3 cm 2 3.1 ---- Peak javier, S 1.43 m/sec 0.92 ---- Mean javier, S 1.04 m/sec 0.71 ---- VTI, S 28.0 cm 21.4 ---- Peak grad, 8 mm Hg 3 ---- S Mean grad, 5 mm Hg 2 ---- S SV 92 ml 63 ---- Qs 7.42 L/min 4.43 ---- Qs/bsa 3.4 L/(min-m 2) 2.2 ---- SV/bsa 42 ml/m 2 31 ---- Ventricular septum Value 03/06/2023 Ref IVS, ED 1.3 cm 1.4 0.6 - 1.0 Right ventricle Value 03/06/2023 Ref CRISTINA, LAX 2.1 cm 2.7 ---- Pressure, S 20 mm Hg ---- RVOT Value 03/06/2023 Ref Peak v, S 1.01 m/sec ---- Peak grad, 4 mm Hg ---- S Left atrium Value 03/06/2023 Ref Vol/bsa, 24 ml/m 2 27 12 - ES, 1-p A4C 37 Vol, ES, 60 ml 54 ---- 2-p Vol/bsa, 28 ml/m 2 27 16 - ES, 2-p 34 Vol/bsa, 26 ml/m 2 28 16 - ES, A/L 34 AP dim, ES 3.9 cm 3.5 3.0 PATIENT NAME: ELOINA GASTELUM [id number] MM - 4.0 LA/Ao root 1.52 1.06 ---- ratio, MM Aortic valve Value 03/06/2023 Ref Leaflet 1.46 cm 0.65 ---- sep, MM Peak v, S 1.6 m/sec 1.59 ---- Mean v, S 0.97 m/sec 1.1 ---- VTI, S 29.9 cm 36.4 ---- Mean grad, 4.8 mm Hg 5.5 ---- S Peak grad, 10.2 mm Hg 10.1 ---- S LVOT/AV, 0.94 0.59 ---- VTI ratio JULEE, VTI 3.07 cm 2 0.57 ---- LVOT/AV, 0.9 0.58 ---- Vpeak ratio JULEE, Vmax 2.94 cm 2 0.63 ---- Mitral valve Value 03/06/2023 Ref E-septal 0.4 cm ---- separation E-F slope 0.02 m/sec ---- Peak E 0.07 m/sec 0.05 ---- Peak A 1.18 m/sec 0.98 ---- Mean v, D 0.77 m/sec ---- VTI leaflet 35.8 cm ---- coapt Decel time 189 ms 302 ---- PHT 55 ms 89 ---- Mean grad, 2.7 mm Hg ---- D Peak grad, 5.4 mm Hg ---- D Peak E/A 0.91 1.09 ---- ratio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
[2023-03-09 17:45] LABS: Calcium Oxalate Crystals- Ur Few /HPF (None Seen); Renal Epithelial 20-50 /HPF (None Seen); Specific Gravity 1.025 (1.005-1.030); Urine Bacteria <20 /HPF (<20); Urine Bilirubin NEGATIVE (Negative); Urine Blood 3+ (OVER) (Negative); Urine Clarity Extremely Turbid (Clear); Urine Color Light-Orange (Yellow); Urine Glucose NEGATIVE (Negative); Urine Mucus 1+ /HPF (None Seen); Urine Protein 2+ (Negative); Urine RBC >50 /HPF (None Seen); Urine Urobilinogen Normal (Normal); Urine WBC Clump Occasional /HPF (None Seen); Urine pH 5.5 (5.0-7.0)
[2023-03-09 17:47] LABS: Albumin 3.1 g/dL (3.4-5.0); Bilirubin Total 0.8 mg/dL (0.2-1.0); Potassium 3.7 mEq/L (3.5-5.1); Protein, Total 7.6 g/dL (6.4-8.2)
[2023-03-09] MEDS ORDERED: CEFTRIAXONE 1000 MG/VIAL ONE (20:00)
[2023-03-09] MEDS ORDERED: NA CHLORIDE 0.9% 50 ML ONE (20:01)
--- NOTE | 2023-03-09 20:43 | EDPHYS ---
Physician Documentation [facility] Name: Samuel Parker Age: 82 yrs Sex: Male : 1940 Arrival Date: 03/09/2023 Time: 16:41 Bed 14 Private MD: ED Physician King Shirley HPI: 03/09 17:25 This 82 yrs old Male presents to ER via Ambulatory with complaints of Blood in urine. rt 17:25 Patient presents to the ED with hematuria. 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 Patient has had intermittent hematuria since October. Patient did have a bladder scope done, was found have a polyp in the urethra as well as inflammation of the bladder. Has not been able to have follow-up due to the valve replacement. The patient reports worsening hematuria today with out clots. States that he has red urine. Denies other acute complaints at this time, stating that he feels well. Symptoms are mild in severity, no other aggravating or alleviating factors.. 17:25 Patient does state that he has difficulty in emptying his bladder.. rt Historical: - Allergies: 17:10 Symbicort; ld1 - PMHx: 17:10 CAD; Diabetes - NIDDM; High Cholesterol; ld1 - PSHx: 17:10 Aortic valve replacement; ld1 - Immunization history:: Adult Immunizations up to date, Client reports receiving the 2nd dose of the Covid vaccine. - Social history:: Smoking status: Patient denies any tobacco usage or history of. Patient/guardian denies using alcohol. - Family history:: not pertinent. ROS: 17:25 : Positive for hematuria, difficulty urinating, Negative for rt 17:25 Constitutional: Negative for fever, chills, and weight loss, Cardiovascular: Negative rt for chest pain, palpitations, and edema, Respiratory: Negative for shortness of breath, cough, wheezing, and pleuritic chest pain, Abdomen/GI: Negative for abdominal pain, nausea, vomiting, diarrhea, and constipation, Skin: Negative for injury, rash, and discoloration, Neuro: Negative for headache, weakness, numbness, tingling, and seizure, Psych: Negative for depression, anxiety, suicide ideation, homicidal ideation, and hallucinations. Exam: 17:25 Constitutional: This is a well developed, well nourished patient who is awake, alert, rt and in no acute distress. Head/Face: Normocephalic, atraumatic. Chest/axilla: Normal chest wall appearance and motion. Nontender with no deformity. No lesions are appreciated. Cardiovascular: Regular rate and rhythm with a normal S1 and S2. No gallops, murmurs, or rubs. Normal PMI, no JVD. No pulse deficits. Respiratory: Lungs have equal breath sounds bilaterally, clear to auscultation and percussion. No rales, rhonchi or wheezes noted. No increased work of breathing, no retractions or nasal flaring. Abdomen/GI: Soft, non-tender, with normal bowel sounds. No distension or tympany. No guarding or rebound. No evidence of tenderness throughout. Skin: Warm, dry with normal turgor. Normal color with no rashes, no lesions, and no evidence of cellulitis. MS/ Extremity: Pulses equal, no cyanosis. Neurovascular intact. Full, normal range of motion. Neuro: Awake and alert, GCS 15, oriented to person, place, time, and situation. Cranial nerves II-XII grossly intact. Motor strength 5/5 in all extremities. Sensory grossly intact. Cerebellar exam normal. Normal gait. Psych: Awake, alert, with orientation to person, place and time. Behavior, mood, and affect are within normal limits. Vital Signs: 17:11 BP 157 / 66; Pulse 78; Resp 18; Temp 97.6(O); Pulse Ox 99% on R/A; Weight 83.91 kg; ld1 Height 5 ft. 10 in. ; Pain 0/10; 20:58 BP 153 / 66; Pulse 85; Resp 18; Pulse Ox 99% on R/A; Pain 0/10; nj1 17:11 Body Mass Index 26.54 (83.91 kg, 177.8 cm) ld1 17:11 Pain Scale: Adult ld1 20:58 Pain Scale: Adult nj1 MDM: 17:15 Patient medically screened. rt 18:00 Differential diagnosis: bacterial infection, UTI, sepsis. cp 20:42 Data reviewed: vital signs, nurses notes, lab test result(s). cp 20:42 Consideration of Admission/Observation Escalation of care including cp admission/observation considered. I considered the following discharge prescriptions or medication management in the emergency department Medications were administered in the Emergency Department. See MAR. ED course: VSS. Will discharge to home for continued monitoring. 03/09 17:16 Order name: UAM; Complete Time: 18:03 rt 03/09 17:16 Order name: CBC with Diff; Complete Time: 18:03 rt 03/09 17:16 Order name: CMP; Complete Time: 18:03 rt 03/09 17:16 Order name: PT-INR; Complete Time: 17:39 rt 03/09 17:16 Order name: Ptt, Activated; Complete Time: 17:39 rt 03/09 17:49 Order name: Urine Culture EDMS Administered Medications: 20:00 Drug: Rocephin IV 1 grams Route: IV; Rate: calculated rate; Site: right antecubital; nj1 20:50 Follow up: Response: No adverse reaction nj1 Disposition Summary: 03/09/23 20:43 Discharge Ordered Location: Home cp Problem: new cp Symptoms: have improved cp Condition: Stable cp Diagnosis - UTI/ Urinary tract infection, site not specified cp Followup: cp - With: Private Physician - When: 2 - 3 days - Reason: Recheck today's complaints Discharge Instructions: - Discharge Summary Sheet cp - Urinary Tract Infection, Adult cp Forms: - Medication Reconciliation Form cp - Thank You Letter cp - Antibiotic Education cp - Prescription Opioid Use cp Prescriptions: - cefpodoxime 200 mg Oral Tablet - take 1 tablet by ORAL route every 12 hours for 10 days with food; 20 tablet; cp Refills: 0, Product Selection Permitted Addendum: 03/12/2023 23:17 Co-signature as Attending Physician, King Shirley MD I reviewed the patient's care r t provided by the Advanced Practice Provider and agree with the diagnosis and treatment plan. Signatures: Dispatcher [employer] EDMS Phuc Faulkner PA PA cp Audelia Preston RN RN ld1 King Shirley MD MD rt Rayna Vieira RN RN nj1
--- NOTE | 2023-03-09 20:43 | ER ---
Nurse's Notes [facility] Name: Samuel Parker Age: 82 yrs Sex: Male : 1940 Arrival Date: 03/09/2023 Time: 16:41 Bed 14 Private MD: Diagnosis: UTI/ Urinary tract infection, site not specified Presentation: 03/09 17:10 Chief complaint: Patient states: Blood in urine - frequent urination, unable to fully ld1 empty bladder. Coronavirus screen: At this time, the client does not indicate any symptoms associated with coronavirus-19. Ebola Screen: No symptoms or risks identified at this time. Risk Assessment: Do you want to hurt yourself or someone else? Patient reports no desire to harm self or others. Onset of symptoms was March 09, 2023. 17:10 Method Of Arrival: Ambulatory ld1 17:10 Acuity: ZHAO 3 ld1 17:11 Initial Sepsis Screen: Does the patient meet any 2 criteria? No. Patient's initial ld1 sepsis screen is negative. Does the patient have a suspected source of infection? No. Patient's initial sepsis screen is negative. Triage Assessment: 17:10 General: Appears in no apparent distress. comfortable, Behavior is calm, cooperative, ld1 appropriate for age. Pain: Denies pain. EENT: No signs and/or symptoms were reported regarding the EENT system. Neuro: Level of Consciousness is awake, alert, obeys commands, Oriented to person, place, time, situation. Cardiovascular: Capillary refill < 3 seconds Patient's skin is warm and dry. Respiratory: Airway is patent Respiratory effort is even, unlabored. GI: Abdomen is flat, non-distended. : Reports Blood in urine. Derm: No signs and/or symptoms reported regarding the dermatologic system. Musculoskeletal: No signs and/or symptoms reported regarding the musculoskeletal system. Historical: - Allergies: 17:10 Symbicort; ld1 - PMHx: 17:10 CAD; Diabetes - NIDDM; High Cholesterol; ld1 - PSHx: 17:10 Aortic valve replacement; ld1 - Immunization history:: Adult Immunizations up to date, Client reports receiving the 2nd dose of the Covid vaccine. - Social history:: Smoking status: Patient denies any tobacco usage or history of. Patient/guardian denies using alcohol. - Family history:: not pertinent. Screenin:55 [facility] ED Fall Risk Assessment (Adult) History of falling in the last 3 months, nj including since admission No falls in past 3 months (0 pts) Confusion or Disorientation No (0 pts) Intoxicated or Sedated No (0 pts) Impaired Gait No (0 pts) Mobility Assist Device Used No (0 pt) Altered Elimination No (0 pt) Score/Fall Risk Level 0 - 2 = Low Risk Oriented to surroundings, Maintained a safe environment, Hourly rounding (assess needs \T\ fall precautionary measures) done. Abuse screen: Denies threats or abuse. Denies injuries from another. Nutritional screening: No deficits noted. Tuberculosis screening: No symptoms or risk factors identified. Assessment: 19:55 Reassessment: Patient appears in no apparent distress at this time. Patient and/or [facility] family updated on plan of care and expected duration. Pain level reassessed. Patient is alert, oriented x 3, equal unlabored respirations, skin warm/dry/pink. Patient denies pain at this time. 20:30 Reassessment: Unable to bladder scan patient due to bladder scanner malfunction. Charge [facility] nurse and ED provider notified. This RN has called house sup to ask for a in house bladder scanner. 20:45 Reassessment: No need to bladder scan patient per Alley MUIR, patient being discharged. [facility] Charge nurse aware, this RN notifies assistant housekeeping manager. 21:00 Reassessment: Patient appears in no apparent distress at this time. Patient and/or [facility] family updated on plan of care and expected duration. Pain level reassessed. Patient is alert, oriented x 3, equal unlabored respirations, skin warm/dry/pink. Patient denies pain at this time. Vital Signs: 17:11 BP 157 / 66; Pulse 78; Resp 18; Temp 97.6(O); Pulse Ox 99% on R/A; Weight 83.91 kg; ld1 Height 5 ft. 10 in. ; Pain 0/10; 20:58 BP 153 / 66; Pulse 85; Resp 18; Pulse Ox 99% on R/A; Pain 0/10; nj1 17:11 Body Mass Index 26.54 (83.91 kg, 177.8 cm) ld1 17:11 Pain Scale: Adult ld1 20:58 Pain Scale: Adult [facility] ED Course: 16:42 Patient arrived in ED. ts1 16:49 King Shirley MD is Attending Physician. rt 17:10 Triage completed. ld1 17:10 Arm band placed on right wrist. ld1 17:18 Inserted saline lock: 20 gauge in right antecubital area, using aseptic technique. ld1 Blood collected. 17:18 Ptt, Activated Sent. ld1 17:18 PT-INR Sent. ld1 17:18 CMP Sent. ld1 17:18 CBC with Diff Sent. ld1 17:24 UAM Sent. zm 17:24 CBC with Diff Sent. zm 17:24 CMP Sent. zm 17:24 PT-INR Sent. zm 17:24 Ptt, Activated Sent. zm 18:03 Phuc Faulkner PA is PHCP. cp 19:44 Rayna Vieira, RN is Primary Nurse. nj1 19:55 Patient has correct armband on for positive identification. Bed in low position. Call nj1 light in reach. Adult w/ patient. 20:50 No provider procedures requiring assistance completed. nj1 21:00 IV discontinued, intact, bleeding controlled. nj1 Administered Medications: 20:00 Drug: Rocephin IV 1 grams Route: IV; Rate: calculated rate; Site: right antecubital; nj1 20:50 Follow up: Response: No adverse reaction nj1 Medication: 20:50 VIS not applicable for this client. nj1 Outcome: 20:43 Discharge ordered by . cp 21:00 Discharged to home ambulatory, with family. nj1 21:00 Condition: stable 21:00 Discharge instructions given to patient, Instructed on discharge instructions, follow up and referral plans. medication usage, Demonstrated understanding of instructions, follow-up care, medications, Prescriptions given X 1. 21:07 Patient left the ED. nj1 Signatures: Phuc Faulkner PA PA cp Sims, Lauren RN RN ld1 Gloria Slaughter Ryan, MD MD rt Rayna Vieira RN RN nj1 Tanika Perales PAS PAS ts1 Corrections: (The following items were deleted from the chart) 17:13 17:10 Chief complaint: Patient states: Blood in urine ld1 ld1 20:01 19:55 Reassessment: Patient appears in no apparent distress at this time. Patient nj1 and/or family updated on plan of care and expected duration. Pain level reassessed. Patient is alert, oriented x 3, equal unlabored respirations, skin warm/dry/pink. nj1
== END 2023-03-09 21:07 | disposition home or self-care (01) ==
LOC: ER 16:41
DX: N39.0 Urinary tract infection, site not specified (principal); E11.9 Type 2 diabetes mellitus without complications; E78.00 Pure hypercholesterolemia, unspecified; Z88.8 Allergy status to other drugs, medicaments and biological substances; Z95.2 Presence of prosthetic heart valve
CPT/HCPCS: 87088; 85025; 81001; 87086; 36415; 85610; 85730; 80053; 96374; 99284; J0696

== ENCOUNTER 2024-10-05 10:50 | Emergency (ER) | payer OTHER ==
[2024-10-05 12:07] LABS: Absolute Basophils 0.1 K/uL (0-0.5); Absolute Eosinophils 0.4 K/uL (0-0.5); Absolute Lymphocytes (CBC) 1.1 K/uL (0.7-4.9); Absolute Monocytes 0.6 K/uL (0.1-1.3); Absolute Neutrophil 4.6 K/uL (1.8-8.0); Basophils % 0.8 % (0-1.3); Eosinophils % 6.4 % (0-4.4); Hematocrit 41.3 % (39.6-49.0); Hemoglobin 14.1 g/dL (13.6-17.9); Lymphocytes % 16.4 % (15.3-44.8); MCHC 34.1 g/dL (32.0-36.0); MCV 90.8 fL (80-100); MPV 7.3 fL (7.6-11.3); Monocytes % 8.9 % (3.3-12.3); Neutrophils % 67.5 % (41.7-73.7); Nucleated Red Blood Cells % 0.1 % (0-0); Platelets 183 thou/uL (152-406); RBC Red Blood Cell Count 4.55 M/uL (4.33-5.43); Red Cell Distribution Width 14.1 % (12.1-15.2)
[2024-10-05 13:06] LABS: Albumin 3.5 g/dL (3.4-5.0); Albumin/Globulin Ratio 0.9 (1.1-1.8); Bilirubin Total 0.7 mg/dL (0.2-1.0); Globulin 3.9 g/dL (2.3-3.5); Protein, Total 7.4 g/dL (6.4-8.2)
--- NOTE | 2024-10-05 13:41 | RAD REPORT ---
EXAM; Thorax W/ Con CLINICAL INDICATION: cough TECHNIQUE: Routine CT scan of the chest with 100 cc Isovue-370 intravenous contrast. One or more of t he following dose reduction techniques were used: Automated exposure control, adjustment of the mA and/or kV according to patient size, and/or iterative reconstruction. Unless otherwise specified, inc idental findings do not require dedicated imaging follow-up. [id number]. COMPARISON: 2016 . FINDINGS: A few chronic appearing interstitial lung opacities. No mediastinal or hilar lymphadenopathy. No pleural effusion. No pericardial effusion. Mild left pleural thickening. Aortic stent in place. Small gallstone IMPRESSION: No acute abnormality is displayed
--- NOTE | 2024-10-05 13:42 | RAD REPORT ---
Procedure: Chest Pa And Lat (2 Views) HISTORY: Cough COMPARISON: December 2022 FINDINGS: The lungs appear clear of acute infiltrate. No significant pleural effusion noted. The heart is normal size. Post surgical changes involve the chest IMPRESSION: No acute abnormality is displayed.
--- NOTE | 2024-10-05 14:04 | ER ---
Nurse's Notes [facility] Name: Samuel Parker Age: 84 yrs Sex: Male : 1940 Arrival Date: 10/05/2024 Time: 10:50 Bed 12 Private MD: Diagnosis: Acute pharyngitis, unspecified Presentation: 10/05 11:10 Chief complaint: Patient states: Was taking medication this morning and started choking cm10 on a gel capsule. pt states that he still feels like it is stuck. Pt states that he is able to drink fluids with no issues. Coronavirus screen: Client denies travel out of the [place] in the last 14 days. Ebola Screen: Patient denies travel to an Ebola-affected area in the 21 days before illness onset. Initial Sepsis Screen: Does the patient meet any 2 criteria? No. Patient's initial sepsis screen is negative. Does the patient have a suspected source of infection? No. Patient's initial sepsis screen is negative. Risk Assessment: Do you want to hurt yourself or someone else? Patient reports no desire to harm self or others. Onset of symptoms was October 05, 2024. 11:10 Method Of Arrival: Ambulatory cm10 11:10 Acuity: ZHAO 3 cm10 Triage Assessment: 11:12 General: Appears in no apparent distress. uncomfortable, Behavior is calm, cooperative. cm10 Neuro: No deficits noted. Level of Consciousness is awake, alert, obeys commands, Oriented to person, place, time, situation, Appropriate for age. Historical: - Allergies: 11:09 Symbicort; cm10 11:09 metformin; cm10 - PMHx: 11:09 CAD; Diabetes - NIDDM; High Cholesterol; cm10 - PSHx: 11:09 Aortic valve replacement; cm10 - Immunization history:: Adult Immunizations up to date. - Infectious Disease History:: Denies. - Social history:: Smoking status: Patient denies any tobacco usage or history of. Screenin:05 [facility] ED Fall Risk Assessment (Adult) History of falling in the last 3 months, br2 including since admission No falls in past 3 months (0 pts) Confusion or Disorientation No (0 pts) Intoxicated or Sedated No (0 pts) Impaired Gait No (0 pts) Mobility Assist Device Used No (0 pt) Altered Elimination No (0 pt) Score/Fall Risk Level 0 - 2 = Low Risk Oriented to surroundings. Abuse screen: Denies threats or abuse. Denies injuries from another. Nutritional screening: No deficits noted. Tuberculosis screening: No symptoms or risk factors identified. Assessment: 12:05 Reassessment: Patient and/or family updated on plan of care and expected duration. Pain br2 level reassessed. Patient is alert, oriented x 3, equal unlabored respirations, skin warm/dry/pink. Patient states feeling better. Patient states symptoms have improved. 13:45 Reassessment: No changes from previously documented assessment. Patient and/or family br2 updated on plan of care and expected duration. Pain level reassessed. Patient is alert, oriented x 3, equal unlabored respirations, skin warm/dry/pink. Pain: Denies pain. Vital Signs: 11:10 BP 160 / 65; Pulse 85; Resp 15; Temp 98.4; Pulse Ox 97% on R/A; Weight 68.49 kg (R); cm10 Height 5 ft. 11 in. ; Pain 0/10; 13:03 BP 150 / 64; Pulse 70; Resp 18 S; Pulse Ox 98% on R/A; Pain 0/10; br2 11:10 Body Mass Index 21.06 (68.49 kg, 180.34 cm) cm10 11:10 Pain Scale: Adult cm10 13:03 Pain Scale: Adult br2 ED Course: 10:55 Patient arrived in ED. sj2 10:59 Donell Brito FNP-C [facility]. dr5 10:59 Phuc Pickard MD is Attending Physician. dr5 11:11 Triage completed. cm10 11:12 Arm band placed on left wrist. Patient placed in an exam room, on a stretcher. cm10 11:48 William Fernandez, RN is Primary Nurse. bp 11:49 Initial lab(s) drawn, by me, sent to lab. Inserted saline lock: 20 gauge in left bp forearm, using aseptic technique. Blood collected. Flushed with 10 mL NS. 12:05 Patient has correct armband on for positive identification. Bed in low position. Call br2 light in reach. Side rails up X 1. Provided Education on: plan of care. 12:08 Chest Pa And Lat (2 Views) XRAY In Process Unspecified. EDMS 13:31 CT Chest W/ Con In Process Unspecified. EDMS 14:18 No provider procedures requiring assistance completed. IV discontinued, intact, br2 bleeding controlled, No redness/swelling at site. Pressure dressing applied. Administered Medications: 14:17 Drug: GI Cocktail without - (Maalox PO 30 ml, Lidocaine Mucous Membrane 2 % 15 br2 ml) PO once Route: PO; 14:19 Follow up: Response: Medication administered at discharge. br2 Outcome: 14:03 Discharge ordered by . dr5 14:18 Discharged to home ambulatory, br2 14:18 Condition: stable 14:18 Discharge instructions given to patient, Instructed on discharge instructions, Demonstrated understanding of instructions, 14:19 Patient left the ED. br2 Signatures: Dispatcher [employer] EDMS William Fernandez, RN RN Manisha Bonilla RN RN cm10 Dottie Estrada RN RN br2 Mi Cintron sj2 Donell Brito, PRESIDENT CEO & FOUNDER-C PRESIDENT CEO & FOUNDER-Cdr5
--- NOTE | 2024-10-05 14:04 | EDPHYS ---
Physician Documentation [facility] Name: Samuel Parker Age: 84 yrs Sex: Male : 1940 Arrival Date: 10/05/2024 Time: 10:50 Bed 12 Private MD: ED Physician Phuc Pickard HPI: 10/05 13:33 This 84 yrs old Male presents to ER via Ambulatory with complaints of dr5 Choked/Choking. 13:33 Onset: The symptoms/episode began/occurred acutely. Patient is a 84-year-old male with dr5 history of CAD, diabetes, high cholesterol coming in with episode of choking on gel pill this morning feels like it might be stuck in his esophagus. Patient reports when he takes a deep breath he coughs. Patient denies difficulty breathing, chest pain, abdominal pain, nausea, vomiting, diarrhea.. Historical: - Allergies: 11:09 Symbicort; cm10 11:09 metformin; cm10 - PMHx: 11:09 CAD; Diabetes - NIDDM; High Cholesterol; cm10 - PSHx: 11:09 Aortic valve replacement; cm10 - Immunization history:: Adult Immunizations up to date. - Infectious Disease History:: Denies. - Social history:: Smoking status: Patient denies any tobacco usage or history of. ROS: 13:33 Constitutional: as per hpi dr5 Exam: 13:33 Constitutional: This is a well developed, well nourished patient who is awake, alert, dr5 and in no acute distress. 13:33 Constitutional: The patient appears in no acute distress, 13:33 Head/Face: Normocephalic, atraumatic. Eyes: Pupils equal round and reactive to light, dr5 extra-ocular motions intact. Lids and lashes normal. Conjunctiva and sclera are non-icteric and not injected. Cornea within normal limits. Periorbital areas with no swelling, redness, or edema. Chest/axilla: Normal chest wall appearance and motion. Nontender with no deformity. No lesions are appreciated. Cardiovascular: Regular rate and rhythm with a normal S1 and S2. Normal PMI, no JVD. No pulse deficits. 13:33 Back: No spinal tenderness. No costovertebral tenderness. Full range of motion. 13:33 Neuro: Awake and alert, GCS 15, oriented to person, place, time, and situation. Cranial nerves II-XII grossly intact. Motor strength 5/5 in all extremities. Sensory grossly intact. Cerebellar exam normal. Normal gait. 13:33 Respiratory: the patient does not display signs of respiratory distress, Respirations: normal, Breath sounds: rhonchi, that are mild, are scattered, are heard diffusely, 13:33 Respiratory: Vital Signs: 11:10 BP 160 / 65; Pulse 85; Resp 15; Temp 98.4; Pulse Ox 97% on R/A; Weight 68.49 kg (R); cm10 Height 5 ft. 11 in. ; Pain 0/10; 13:03 BP 150 / 64; Pulse 70; Resp 18 S; Pulse Ox 98% on R/A; Pain 0/10; br2 11:10 Body Mass Index 21.06 (68.49 kg, 180.34 cm) cm10 11:10 Pain Scale: Adult cm10 13:03 Pain Scale: Adult br2 MDM: 11:00 Medical Screening Exam initiated dr5 14:24 Differential diagnosis: abrasion, strain, obstructed pill in esophagus. Data reviewed: dr5 vital signs, nurses notes, lab test result(s), radiologic studies, CT scan, plain films. Care significantly affected by the following chronic conditions: Diabetes, CAD, HYPERLIPIDEMIA. Care significantly affected by the following Social Determinants of Health: Poor access to healthcare and/or lack of insurance, Poor access to transportation, Problems related to employment. Counseling: I had a detailed discussion with the patient and/or guardian regarding the historical points, exam findings, and any diagnostic results supporting the discharge/admit diagnosis, the presence of at least one elevated blood pressure reading (>120/80) during this emergency department visit, radiology results, the need for outpatient follow up, for definitive care, a family practitioner, to return to the emergency department if symptoms worsen or persist or if there are any questions or concerns that arise at home. ED course: Pt reports he is feeling better. No obstruction noted on CT scan. Pt reports his throat is feeling better. Will discharge at this time. GI cocktail given to help numb throat. All questions answered.. 10/05 11:16 Order name: CBC with Diff; Complete Time: 12:32 dr5 10/05 11:16 Order name: CMP; Complete Time: 13:07 dr5 10/05 11:16 Order name: Chest Pa And Lat (2 Views) XRAY; Complete Time: 13:53 dr5 10/05 11:19 Order name: CT Chest W/ Con; Complete Time: 13:53 dr5 10/05 12:20 Order name: Labs - recollect needed: PLEASE RECOLLECT CHEMS; Complete Time: 12:43 eb Administered Medications: 14:17 Drug: GI Cocktail without - (Maalox PO 30 ml, Lidocaine Mucous Membrane 2 % 15 br2 ml) PO once Route: PO; 14:19 Follow up: Response: Medication administered at discharge. br2 Disposition Summary: 10/05/24 14:03 Discharge Ordered Notes: Location: Home dr5 Condition: Stable dr5 Diagnosis - Acute pharyngitis, unspecified dr5 Followup: dr5 - With: Emergency Department - When: As needed - Reason: Worsening of condition Followup: dr5 - With: Private Physician - When: 1 - 2 days - Reason: Recheck today's complaints, Continuance of care, Re-evaluation by your physician Discharge Instructions: - Discharge Summary Sheet dr5 - Pharyngitis dr5 Forms: - Medication Reconciliation Form dr5 - Patient Portal Instructions dr5 - Leadership Thank You Letter dr5 Addendum: 10/07/2024 15:30 Co-signature as Attending Physician, Phuc Pickard MD I agree with the assessment and c noriega plan of care. Signatures: Dispatcher [employer] Phuc Truong MD MD cha Botello, Elizabeth eb Martinez, Clarissa, RN RN cm10 Dottie Estrada RN RN br2 Donell Brito, DIAGNOSTICS SALES DEVELOPER-C DIAGNOSTICS SALES DEVELOPER-Cdr5
[2024-10-05] MEDS ORDERED: MAGNES/ALUMIN/SIMET 30ML UCUP ONE (14:12)
[2024-10-05] MEDS ORDERED: LIDOCAINE VISCOUS 2% 10ML ORAL SOLN ONE (14:13)
[2024-10-05 14:24] VITALS: TEMP 98.4
[2024-10-05 14:25] VITALS: BP 150/64; O2SAT 98
== END 2024-10-05 14:19 | disposition home or self-care (01) ==
LOC: ER 10:50
DX: J02.9 Acute pharyngitis, unspecified (principal); R05.9 Cough, unspecified
CPT/HCPCS: 85025; 36415; 80053; 71260; 71046; 99284; Q9967